=== PATIENT | female | born 1990 | race Caucasian/White ===

== ENCOUNTER 2016-07-06 19:11 | Emergency (ER) | payer OTHER ==
[2016-07-06 19:15] VITALS: BP 103/70; PULSE 90; RESP 18; TEMP 98.4
--- NOTE | 2016-07-06 19:41 | ED ---
ENT HPI - General Chief complaint: ENT Stated complaint: left ear ache Time Seen by Provider: 07/06/16 19:36 Source: patient, RN notes reviewed Mode of arrival: ambulatory Limitations: no limitations - History of Present Illness Initial comments: 26-year-old female presents to the emergency department with a chief complaint of left ear pain. Patient states that her ear has been hurting her for a while. Patient states that she's noticed some drainage and some wetness to the ear. Patient states she's had something like this before in the past. Patient states that she was concerned due to the continued pain so she thought that she should be evaluated. There is been no fever chills cough cold runny nose. There is been no nausea or vomiting. The patient denied any other symptoms at this time. Patient denies any recent fever, chills, shortness of breath, chest pain, back pain, abdominal pain, nausea vomiting, numbness or tingling, dysuria or hematuria, constipation or diarrhea, headaches or visual changes, or any other current symptoms. - Related Data Home Medications Medication Instructions Recorded Confirmed ALPRAZolam [Xanax] 2 mg PO BID PRN 11/21/14 07/06/16 Previous Rx's Medication Instructions Recorded Ofloxacin 0.3% Ophth Soln [Ocuflox 10 drops LEFT EAR BID 7 Days 07/06/16 Ophth Soln] Allergies Allergy/AdvReac Type Severity Reaction Status Date / Time No Known Allergies Allergy Verified 07/06/16 19:15 Review of Systems ROS Statement: Those systems with pertinent positive or pertinent negative responses have been documented in the HPI. ROS Other: All systems not noted in ROS Statement are negative. Past Medical History Past Medical History: No Reported History, GERD/Reflux History of Any Multi-Drug Resistant Organisms: None Reported Past Surgical History: Adenoidectomy, Tonsillectomy Past Anesthesia/Blood Transfusion Reactions: No Reported Reaction Past Psychological History: ADD/ADHD, Anxiety, Bipolar, Depression Smoking Status: Former smoker Past Alcohol Use History: None Reported Past Drug Use History: None Reported - Past Family History Mother Family Medical History: Cancer General Exam - General Exam Comments Initial Comments: General exam: Alert, active, comfortable in no apparent distress Head: Normocephalic Eyes: Normal reaction of pupils, equal size, normal range of extraocular motion Ears: Bilateral pink tympanic membranes with normal cone of light, and doesn't appear to have some erythema to the left external canal with pain with movement of the tragus and auricle. Nose: clear with pink turbinates Throat: no erythema or exudates with normal sized tonsils Neck: no masses, no nuchal rigidity Chest: no chest wall deformity Lungs: equal air entry with no crackles or wheeze CVS: S1 and S2 normal with no audible mumurs, regular rhythm Abdomen: no hepatosplenomegaly, normal bowel sounds, no guarding or rigidity Spine: no scoliosis or deformity Skin: no rashes Neurological: No focal deficits, tone is normal in all 4 extremities Limitations: no limitations Course Vital Signs 07/06/16 19:13 Temperature 98.4 F Pulse Rate 90 Respiratory 18 Rate Blood Pressure 103/70 O2 Sat by Pulse 98 Oximetry Medical Decision Making - Medical Decision Making 26-year-old female presents for what appears to be noted I this externa. This will start her on drops. We discussed follow-up with her DrMendoza coleman. We discussed outpatient family's questions. They state [place] area. Plan. They will be discharged home. Disposition Clinical Impression: Left otitis externa Disposition: HOME SELF-CARE Condition: Stable Instructions: Otitis Externa (ED) Additional Instructions: Please use medication as discussed. Please follow up with family doctor if symptoms have not improved over the next two days. Please return to the emergency room if your symptoms increase or worsen or for any other concerns. Prescriptions: Ofloxacin 0.3% Ophth Soln [Ocuflox Ophth Soln] 10 drops LEFT EAR BID 7 Days Referrals: Jovi Berry MD [Primary Care Provider] - 1-2 days Time of Disposition: 19:40
== END 2016-07-06 19:46 | disposition home or self-care (01) ==
LOC: EC 19:11
DX: H60.92 Unspecified otitis externa, left ear (principal); Z87.891 Personal history of nicotine dependence
CPT/HCPCS: 99282

== ENCOUNTER 2016-08-10 14:02 | Emergency (ER) | payer OTHER ==
[2016-08-10 14:17] VITALS: BP 121/75; PULSE 90; RESP 18; TEMP 97.7
--- NOTE | 2016-08-10 15:31 | ED ---
Skin/Abscess/FB HPI - General Chief complaint: Skin/Abscess/Foreign Body Stated complaint: Cyst near groin Time Seen by Provider: 08/10/16 14:23 Source: patient, RN notes reviewed Mode of arrival: ambulatory Limitations: no limitations - History of Present Illness Initial comments: 26-year-old female presents emergency Department chief complaint abscess to the left thigh. Patient is tender. Patient states that there is no drainage. Patient states that she's never had a feeling before. Patient denies any MRSA. Patient was concerned due to the symptoms so she thought that she should be evaluated. Patient denies any recent fever, chills, shortness of breath, chest pain, back pain, abdominal pain, nausea vomiting, numbness or tingling, dysuria or hematuria, constipation or diarrhea, headaches or visual changes, or any other current symptoms. - Related Data Home Medications Medication Instructions Recorded Confirmed Ibuprofen/Diphenhydramine HCl 4 cap PO HS PRN 08/10/16 08/10/16 [Advil Pm Liqui-Gels] Previous Rx's Medication Instructions Recorded Sulfamethox-Tmp 800-160Mg [Bactrim 2 each PO Q12HR #56 tab 08/10/16 DS 800-160 mg] Allergies Allergy/AdvReac Type Severity Reaction Status Date / Time No Known Allergies Allergy Verified 08/10/16 14:31 Review of Systems ROS Statement: Those systems with pertinent positive or pertinent negative responses have been documented in the HPI. ROS Other: All systems not noted in ROS Statement are negative. Past Medical History Past Medical History: No Reported History, GERD/Reflux History of Any Multi-Drug Resistant Organisms: None Reported Past Surgical History: Adenoidectomy, Tonsillectomy Past Anesthesia/Blood Transfusion Reactions: No Reported Reaction Past Psychological History: ADD/ADHD, Anxiety, Bipolar, Depression Smoking Status: Former smoker Past Alcohol Use History: None Reported Past Drug Use History: None Reported - Past Family History Mother Family Medical History: Cancer General Exam Limitations: no limitations General appearance: alert, in no apparent distress ENT exam: Present: normal exam, mucous membranes moist Neck exam: Present: normal inspection. Absent: tenderness, meningismus, lymphadenopathy Respiratory exam: Present: normal lung sounds bilaterally. Absent: respiratory distress, wheezes, rales, rhonchi, stridor Cardiovascular Exam: Present: regular rate, normal rhythm, normal heart sounds. Absent: systolic murmur, diastolic murmur, rubs, gallop, clicks External exam: Present: lesions (She appears to have an abscess to the left upper peritoneal area.). Absent: erythema, swelling, lacerations, ecchymosis Extremities exam: Present: normal inspection, full ROM, normal capillary refill. Absent: tenderness, pedal edema, joint swelling, calf tenderness Neurological exam: Present: alert, oriented X3 Psychiatric exam: Present: normal affect, normal mood Course Vital Signs 08/10/16 14:12 Temperature 97.7 F Pulse Rate 90 Respiratory 18 Rate Blood Pressure 121/75 O2 Sat by Pulse 99 Oximetry Procedures - Procedures Initial comment: Procedure: Incision and drainage The skin overlying the abscess was prepped with Betadine, and anesthetized with 1% lidocaine without epinephrine. A #11 scalpel was then used to incise the abscess. Some purulent material was then extracted from the lesion. Gauze dressing placed on top, The patient tolerated the procedure well. Medical Decision Making - Medical Decision Making 26-year-old female presents emergency Department chief complaint abscess. This time patient underwent drainage. We discussed care follow-up and return parameters. We discussed outpatient family's questions. He stated he understood and agreed. The plan. This and discharged. Disposition Clinical Impression: Abscess of left groin Disposition: HOME SELF-CARE Condition: Stable Instructions: Abscess (ED), Abscess Incision and Drainage (ED) Additional Instructions: Please use medication as discussed. Please follow up with family doctor if symptoms have not improved over the next two days. Please return to the emergency room if your symptoms increase or worsen or for any other concerns. Prescriptions: Sulfamethox-Tmp 800-160Mg [Bactrim DS 800-160 mg] 2 each PO Q12HR #56 tab Referrals: Jovi Berry MD [Primary Care Provider] - 1-2 days Time of Disposition: 15:31
== END 2016-08-10 15:41 | disposition home or self-care (01) ==
LOC: EC 14:02
DX: L02.214 Cutaneous abscess of groin (principal); Z87.891 Personal history of nicotine dependence
CPT/HCPCS: 10060; 99282

== ENCOUNTER 2016-10-24 09:33 | Emergency (ER) | payer OTHER ==
[2016-10-24 09:38] VITALS: RESP 18
[2016-10-24 10:35] LABS: Appearance,Urine Clear (Clear); Basophils # (A) 0.1 k/uL (0-0.2); Basophils % (A) 1 %; Bilirubin,Urine Negative (Negative); CH 31.4; CHCM 33.8; Eosinophils # (A) 0.3 k/uL (0-0.7); Eosinophils % (A) 3 %; Glucose,Urine (UA) Negative (Negative); HCT 42.4 % (34.0-46.0); HDW 2.54; HGB 13.8 gm/dL (11.4-16.0); Ketones,Urine Negative (Negative); Leukocyte Esterase,Urine Negative (Negative); Luc # (Auto) 0.17; Luc % (Auto) 2; Lymphocytes # (A) 3.4 k/uL (1.0-4.8); Lymphocytes % (A) 31 %; MCH 30.4 pg (25.0-35.0); MCHC 32.5 g/dL (31.0-37.0); MCV 93.6 fL (80.0-100.0); Mean Platelet Volume 7.9; Monocytes # (A) 0.5 k/uL (0-1.0); Monocytes % (A) 4 %; Neutrophils # (A) 6.5 k/uL (1.3-7.7); Neutrophils % (A) 60 %; Nitrite,Urine Negative (Negative); Protein,Urine Negative (Negative); RBC 4.53 m/uL (3.80-5.40); RDW 13.9 % (11.5-15.5); Specific Gravity,Urine 1.021 (1.001-1.035); UA Billing (MACRO vs. MICRO) CHEM; Urobilinogen,Urine <2.0 mg/dL (<2.0); WBC 10.9 k/uL (3.8-10.6); WBC (Perox) 11.14
[2016-10-24 10:43] LABS: INR 0.9 (<1.2); Partial Thromboplastin Time 23.6 sec (22.0-30.0); Prothrombin Time 9.5 sec (9.0-12.0)
[2016-10-24 10:44] LABS: ALT 39 U/L (9-52); AST 20 U/L (14-36); Alkaline Phosphatase 48 U/L (38-126); Anion Gap 6 mmol/L; Blood Urea Nitrogen 8 mg/dL (7-17); Calcium 8.6 mg/dL (8.4-10.2); Carbon Dioxide 23 mmol/L (22-30); Chloride 111 mmol/L (98-107); Glucose 89 mg/dL (74-99); Non-African American GFR(MDRD) >60 (>60 ml/min/1.73 sqM); Potassium 4.3 mmol/L (3.5-5.1); Sodium 140 mmol/L (137-145); Total Bilirubin 0.1 mg/dL (0.2-1.3); Total Protein 5.8 g/dL (6.3-8.2)
--- NOTE | 2016-10-24 11:33 | ED ---
Female Urogenital HPI - General Chief complaint: Urogenital Stated complaint: pelvic pain Time Seen by Provider: 10/24/16 09:47 Source: patient, RN notes reviewed, old records reviewed Mode of arrival: ambulatory Limitations: no limitations - History of Present Illness Initial comments: this is a 26-year-old female chief complaint of lower abdominal pain for the past day. Patient reports she woke up this morning felt a sharp shooting pain and it radiates towards her lower back.. When she stood up she felt a florentino of clear fluid leak out of her vagina. Patient reports that she has not had any previous vaginal discharge or bleeding. She reports that her last menstrual cycle was 2 months ago and there is a chance she may be . Patient states that she also noticed that whenever she leaned forward she was having some nipple pain, she reports that she felt like she wanted to repeat them off. She denies any abnormal discharge from her nipples. Patient states that she also has frequent right upper quadrant abdominal pain, denies any recent nausea or vomiting. She states that the pain has been going off-and-on for the past year. Patient states she's had a history of ovarian cysts. Patient denies any recent fever, chills, shortness of breath, chest pain, back pain, nausea vomiting, numbness or tingling, dysuria or hematuria, constipation or diarrhea, headaches or visual changes, or any other current symptoms - Related Data Home Medications Medication Instructions Recorded Confirmed ALPRAZolam [Xanax] 2 mg PO BID 10/24/16 10/24/16 diphenhydrAMINE HCL 25 mg PO HS PRN 10/24/16 10/24/16 [Diphenhydramine HCl] Previous Rx's Medication Instructions Recorded LORazepam [Ativan] 0.5 mg PO BID #10 tab 10/24/16 metroNIDAZOLE [Flagyl] 500 mg PO BID #14 tab 10/24/16 Allergies Allergy/AdvReac Type Severity Reaction Status Date / Time No Known Allergies Allergy Verified 10/24/16 09:49 Review of Systems ROS Statement: Those systems with pertinent positive or pertinent negative responses have been documented in the HPI. ROS Other: All systems not noted in ROS Statement are negative. Past Medical History Past Medical History: GERD/Reflux Additional Past Medical History / Comment(s): irregular periods History of Any Multi-Drug Resistant Organisms: None Reported Past Surgical History: Adenoidectomy, Tonsillectomy Past Anesthesia/Blood Transfusion Reactions: No Reported Reaction Past Psychological History: ADD/ADHD, Anxiety, Bipolar, Depression Smoking Status: Former smoker Past Alcohol Use History: None Reported Past Drug Use History: None Reported - Past Family History Mother Family Medical History: Cancer General Exam - General Exam Comments Initial Comments: this is a 26-year-old female. No acute distress. Limitations: no limitations General appearance: alert, in no apparent distress Head exam: Present: atraumatic, normocephalic, normal inspection Eye exam: Present: normal appearance, PERRL, EOMI. Absent: scleral icterus, conjunctival injection, periorbital swelling ENT exam: Present: normal exam, mucous membranes moist Neck exam: Present: normal inspection. Absent: tenderness, meningismus, lymphadenopathy Respiratory exam: Present: normal lung sounds bilaterally. Absent: respiratory distress, wheezes, rales, rhonchi, stridor Cardiovascular Exam: Present: regular rate, normal rhythm, normal heart sounds. Absent: systolic murmur, diastolic murmur, rubs, gallop, clicks GI/Abdominal exam: Present: soft, normal bowel sounds. Absent: distended, tenderness, guarding, rebound, rigid Extremities exam: Present: normal inspection, full ROM, normal capillary refill. Absent: tenderness, pedal edema, joint swelling, calf tenderness Back exam: Present: normal inspection Neurological exam: Present: alert, oriented X3, CN II-XII intact Psychiatric exam: Present: normal affect, normal mood Skin exam: Present: warm, dry, intact, normal color. Absent: rash Course Vital Signs 10/24/16 10/24/16 10/24/16 09:34 12:43 13:10 Temperature 98 F 97.3 F L Pulse Rate 81 65 Respiratory 18 18 Rate Blood Pressure 127/82 113/75 O2 Sat by Pulse 100 98 Oximetry Medical Decision Making - Medical Decision Making this is a 26-year-old female chief complaint of lower abdominal pain for the past day. Patient reports she woke up this morning felt a sharp shooting pain and it radiates towards her lower back.. When she stood up she felt a florentino of clear fluid leak out of her vagina. Patient reports that she has not had any previous vaginal discharge or bleeding. She reports that her last menstrual cycle was 2 months ago and there is a chance she may be . Patient states that she also noticed that whenever she leaned forward she was having some nipple pain, she reports that she felt like she wanted to repeat them off. She denies any abnormal discharge from her nipples. Patient also complains of severe anxiety during exam. Patient states that she is out of her anxiety medciation and cant refill them due to injusrance. Patient lab work was reviewed, negative for any abnormalities. Patient vaginal exam shows minor vaginal discharge, odor consistent with BV. Patient will be given Flagyl. Patient transvaginal US negative for any signficant abnormality. - Lab Data Result diagrams: 10/24/16 10:25 10/24/16 10:25 Lab Results 10/24/16 10/24/16 10/24/16 Range/Units 10:25 10:25 10:25 WBC 10.9 H (3.8-10.6) k/uL RBC 4.53 (3.80-5.40) m/uL Hgb 13.8 (11.4-16.0) gm/dL Hct 42.4 (34.0-46.0) % MCV 93.6 (80.0-100.0) fL MCH 30.4 (25.0-35.0) pg MCHC 32.5 (31.0-37.0) g/dL RDW 13.9 (11.5-15.5) % Plt Count 317 (150-450) k/uL Neutrophils % 60 % Lymphocytes % 31 % Monocytes % 4 % Eosinophils % 3 % Basophils % 1 % Neutrophils # 6.5 (1.3-7.7) k/uL Lymphocytes # 3.4 (1.0-4.8) k/uL Monocytes # 0.5 (0-1.0) k/uL Eosinophils # 0.3 (0-0.7) k/uL Basophils # 0.1 (0-0.2) k/uL PT (9.0-12.0) sec INR (<1.2) APTT (22.0-30.0) sec Sodium 140 (137-145) mmol/L Potassium 4.3 (3.5-5.1) mmol/L Chloride 111 H (98-107) mmol/L Carbon Dioxide 23 (22-30) mmol/L Anion Gap 6 mmol/L BUN 8 (7-17) mg/dL Creatinine 0.64 (0.52-1.04) mg/dL Est GFR (MDRD) Af Amer >60 (>60 ml/min/1.73 sqM) Est GFR (MDRD) Non-Af >60 (>60 ml/min/1.73 sqM) Glucose 89 (74-99) mg/dL Calcium 8.6 (8.4-10.2) mg/dL Total Bilirubin 0.1 L (0.2-1.3) mg/dL AST 20 (14-36) U/L ALT 39 (9-52) U/L Alkaline Phosphatase 48 (38-126) U/L Total Protein 5.8 L (6.3-8.2) g/dL Albumin 3.5 (3.5-5.0) g/dL Urine Color Urine Appearance (Clear) Urine pH (5.0-8.0) Ur Specific [place] (1.001-1.035) Urine Protein (Negative) Urine Glucose (UA) (Negative) Urine Ketones (Negative) Urine Blood (Negative) Urine Nitrite (Negative) Urine Bilirubin (Negative) Urine Urobilinogen (<2.0) mg/dL Ur Leukocyte Esterase (Negative) Urine HCG, Qual Not Detected (Not Detectd) C.trachomatis RNA (Not detected) Chlamydia/GC DNA Source N.gonorrhoeae RNA (Not detected) Trichomonas Ag (Rapid) (Negative) 10/24/16 10/24/16 10/24/16 Range/Units 10:25 10:25 13:00 WBC (3.8-10.6) k/uL RBC (3.80-5.40) m/uL Hgb (11.4-16.0) gm/dL Hct (34.0-46.0) % MCV (80.0-100.0) fL MCH (25.0-35.0) pg MCHC (31.0-37.0) g/dL RDW (11.5-15.5) % Plt Count (150-450) k/uL Neutrophils % % Lymphocytes % % Monocytes % % Eosinophils % % Basophils % % Neutrophils # (1.3-7.7) k/uL Lymphocytes # (1.0-4.8) k/uL Monocytes # (0-1.0) k/uL Eosinophils # (0-0.7) k/uL Basophils # (0-0.2) k/uL PT 9.5 (9.0-12.0) sec INR 0.9 (<1.2) APTT 23.6 (22.0-30.0) sec Sodium (137-145) mmol/L Potassium (3.5-5.1) mmol/L Chloride (98-107) mmol/L Carbon Dioxide (22-30) mmol/L Anion Gap mmol/L BUN (7-17) mg/dL Creatinine (0.52-1.04) mg/dL Est GFR (MDRD) Af Amer (>60 ml/min/1.73 sqM) Est GFR (MDRD) Non-Af (>60 ml/min/1.73 sqM) Glucose (74-99) mg/dL Calcium (8.4-10.2) mg/dL Total Bilirubin (0.2-1.3) mg/dL AST (14-36) U/L ALT (9-52) U/L Alkaline Phosphatase (38-126) U/L Total Protein (6.3-8.2) g/dL Albumin (3.5-5.0) g/dL Urine Color Yellow Urine Appearance Clear (Clear) Urine pH 5.0 (5.0-8.0) Ur Specific [place] 1.021 (1.001-1.035) Urine Protein Negative (Negative) Urine Glucose (UA) Negative (Negative) Urine Ketones Negative (Negative) Urine Blood Negative (Negative) Urine Nitrite Negative (Negative) Urine Bilirubin Negative (Negative) Urine Urobilinogen <2.0 (<2.0) mg/dL Ur Leukocyte Esterase Negative (Negative) Urine HCG, Qual (Not Detectd) C.trachomatis RNA Not detected (Not detected) Chlamydia/GC DNA Source Endocervix N.gonorrhoeae RNA Not detected (Not detected) Trichomonas Ag (Rapid) (Negative) 10/24/16 Range/Units 13:00 WBC (3.8-10.6) k/uL RBC (3.80-5.40) m/uL Hgb (11.4-16.0) gm/dL Hct (34.0-46.0) % MCV (80.0-100.0) fL MCH (25.0-35.0) pg MCHC (31.0-37.0) g/dL RDW (11.5-15.5) % Plt Count (150-450) k/uL Neutrophils % % Lymphocytes % % Monocytes % % Eosinophils % % Basophils % % Neutrophils # (1.3-7.7) k/uL Lymphocytes # (1.0-4.8) k/uL Monocytes # (0-1.0) k/uL Eosinophils # (0-0.7) k/uL Basophils # (0-0.2) k/uL PT (9.0-12.0) sec INR (<1.2) APTT (22.0-30.0) sec Sodium (137-145) mmol/L Potassium (3.5-5.1) mmol/L Chloride (98-107) mmol/L Carbon Dioxide (22-30) mmol/L Anion Gap mmol/L BUN (7-17) mg/dL Creatinine (0.52-1.04) mg/dL Est GFR (MDRD) Af Amer (>60 ml/min/1.73 sqM) Est GFR (MDRD) Non-Af (>60 ml/min/1.73 sqM) Glucose (74-99) mg/dL Calcium (8.4-10.2) mg/dL Total Bilirubin (0.2-1.3) mg/dL AST (14-36) U/L ALT (9-52) U/L Alkaline Phosphatase (38-126) U/L Total Protein (6.3-8.2) g/dL Albumin (3.5-5.0) g/dL Urine Color Urine Appearance (Clear) Urine pH (5.0-8.0) Ur Specific [place] (1.001-1.035) Urine Protein (Negative) Urine Glucose (UA) (Negative) Urine Ketones (Negative) Urine Blood (Negative) Urine Nitrite (Negative) Urine Bilirubin (Negative) Urine Urobilinogen (<2.0) mg/dL Ur Leukocyte Esterase (Negative) Urine HCG, Qual (Not Detectd) C.trachomatis RNA (Not detected) Chlamydia/GC DNA Source N.gonorrhoeae RNA (Not detected) Trichomonas Ag (Rapid) Negative (Negative) - Radiology Data Radiology results: report reviewed Endometrial stripe is thickened measuring 1.9 cm. Correlate with the use of menstrual cycle. Trace amount of fluid within the pelvis most likely physiologic. Disposition Clinical Impression: Bacterial vaginosis, Anxiety Disposition: HOME SELF-CARE Condition: Good Instructions: Bacterial Vaginosis (ED) Additional Instructions: patient advised to follow-up with her primary care provider. Take antibiotic as prescribed. Return to the emergency department if any alarming signs or symptoms occur. Prescriptions: LORazepam [Ativan] 0.5 mg PO BID #10 tab metroNIDAZOLE [Flagyl] 500 mg PO BID #14 tab Referrals: Jovi Berry MD [Primary Care Provider] - 1-2 days Time of Disposition: 12:59
--- NOTE | 2016-10-24 11:46 | US ---
EXAMINATION TYPE: US transvaginal DATE OF EXAM: 10/24/2016 COMPARISON: NONE CLINICAL HISTORY: Pain. Pelvic pain, worse on the right. Irregular menses TECHNIQUE: Transvaginal (TV) Date of LMP: 2 months ago EXAM MEASUREMENTS: Uterus: 8.6 x 4.9 x 5.1 cm Endometrial Stripe: 1.9 cm Right Ovary: 2.5 x 1.8 x 1.6 cm Left Ovary: 2.8 x 2.2 x 2.0 cm 1. Uterus: Anteverted Nabothian cyst 2. Endometrium: thickened 3. Right Ovary: limited evaluation due to location of ovary - posterior to uterus 4. Left Ovary: follicles noted Spectral, color and waveform doppler imaging shows good arterial and venous flow within the left ov lacho; there is no evidence for ovarian torsion. 5. Bilateral Adnexa: appears wnl 6. Posterior cul-de-sac: free fluid noted IMPRESSION: 1. Endometrial stripe is thickened measuring 1.9 cm. Correlate with phase of menstrual cycle. Trace a mount of fluid in the pelvis likely physiologic.
[2016-10-24] MEDS ORDERED: KETOROLAC 30 MG/ML 1 ML VIAL IVP STA (12:41)
[2016-10-24 12:45] VITALS: BP 113/75; PULSE 65
[2016-10-24 13:11] VITALS: TEMP 97.3
== END 2016-10-24 13:10 | disposition home or self-care (01) ==
LOC: EC 09:33
DX: N76.0 Acute vaginitis (principal); F41.9 Anxiety disorder, unspecified; F31.9 Bipolar disorder, unspecified; Z79.899 Other long term (current) drug therapy; Z87.891 Personal history of nicotine dependence
CPT/HCPCS: 99284; 96374; 36415; 80053; 87591; 87491; 85025; 85610; 85730; 81003; 81025; 87808; 87070; 87205; 93976; 76830; J1885

== ENCOUNTER 2017-03-10 08:32 | Emergency (ER) | payer OTHER ==
--- NOTE | 2017-03-10 08:58 | ED ---
URI HPI - General Chief Complaint: Upper Respiratory Infection Stated Complaint: FLU LIKE SYMPTOMS Time Seen by Provider: 03/10/17 08:44 Source: patient, RN notes reviewed Mode of arrival: ambulatory Limitations: no limitations - History of Present Illness Initial Comments: 26-year-old female presents emergency Department chief complaint of cough cold- like symptoms last 4 days. Patient states that she had a fever last few days and states that she primary has a runny nose, sore throat and a cough. States cough as well as a sore throat. She states cough is also dry but occasionally productive with phlegm. She denies any chest pain or shortness breath. She does admit to some body aches and chills. Patient has NO KNOWN DRUG ALLERGIES. She states every her work is sick with similar symptoms. Patient denies any nausea vomiting diarrhea constipation. - Related Data Home Medications Medication Instructions Recorded Confirmed ALPRAZolam [Xanax] 2 mg PO BID PRN 10/24/16 03/10/17 Previous Rx's Medication Instructions Recorded Amoxicillin/Potassium Clav 1 tab PO Q12HR #20 tab 03/10/17 [Augmentin 875-125 Tablet] methylPREDNISolone [Medrol Dose 4 mg PO DIRECTED #1 pack 03/10/17 Pack] Allergies Allergy/AdvReac Type Severity Reaction Status Date / Time No Known Allergies Allergy Verified 03/10/17 08:45 Review of Systems ROS Statement: Those systems with pertinent positive or pertinent negative responses have been documented in the HPI. ROS Other: All systems not noted in ROS Statement are negative. Past Medical History Past Medical History: GERD/Reflux Additional Past Medical History / Comment(s): irregular periods History of Any Multi-Drug Resistant Organisms: None Reported Past Surgical History: Adenoidectomy, Tonsillectomy Past Anesthesia/Blood Transfusion Reactions: No Reported Reaction Past Psychological History: ADD/ADHD, Anxiety, Bipolar, Depression Smoking Status: Current every day smoker Past Alcohol Use History: None Reported Past Drug Use History: None Reported - Past Family History Mother Family Medical History: Cancer General Exam Limitations: no limitations General appearance: alert, in no apparent distress Head exam: Present: atraumatic, normocephalic, normal inspection Eye exam: Present: normal appearance, PERRL, EOMI. Absent: scleral icterus, conjunctival injection, periorbital swelling ENT exam: Present: normal exam, normal oropharynx, mucous membranes moist, TM's normal bilaterally, normal external ear exam Neck exam: Present: normal inspection, full ROM. Absent: tenderness, meningismus, lymphadenopathy Respiratory exam: Present: normal lung sounds bilaterally. Absent: respiratory distress, wheezes, rales, rhonchi, stridor Cardiovascular Exam: Present: regular rate, normal rhythm, normal heart sounds. Absent: systolic murmur, diastolic murmur, rubs, gallop, clicks GI/Abdominal exam: Present: soft, normal bowel sounds. Absent: distended, tenderness, guarding, rebound, rigid Skin exam: Present: warm, dry, intact, normal color. Absent: rash Course Vital Signs 03/10/17 08:37 Temperature 97.4 F L Pulse Rate 91 Respiratory 18 Rate Blood Pressure 109/72 O2 Sat by Pulse 100 Oximetry Medical Decision Making - Medical Decision Making 26-year-old female presented for URI symptoms. Patient's chest x-ray, flu negative. Patient appears to have acute sinusitis the bronchitis. Will be discharged with medications. Return parameters were discussed. - Lab Data Lab Results 03/10/17 03/10/17 03/10/17 Range/Units 08:47 09:20 09:20 Urine Color Light Yellow Urine Appearance Cloudy H (Clear) Urine pH 5.5 (5.0-8.0) Ur Specific [place] 1.009 (1.001-1.035) Urine Protein Negative (Negative) Urine Glucose (UA) Negative (Negative) Urine Ketones Negative (Negative) Urine Blood Negative (Negative) Urine Nitrite Negative (Negative) Urine Bilirubin Negative (Negative) Urine Urobilinogen <2.0 (<2.0) mg/dL Ur Leukocyte Esterase Negative (Negative) Urine RBC 1 (0-5) /hpf Urine WBC 1 (0-5) /hpf Ur Squamous Epith Cells 1 (0-4) /hpf Hyaline Casts 1 (0-2) /lpf Urine Mucus Rare H (None) /hpf Urine HCG, Qual Not Detected (Not Detectd) Influenza Type A RNA Not Detected (Not Detectd) Influenza Type B (PCR) Not Detected (Not Detectd) Disposition Clinical Impression: Bronchitis, Sinusitis Disposition: HOME SELF-CARE Condition: Stable Instructions: Upper Respiratory Infection (ED) Additional Instructions: Please return to the Emergency Department if symptoms worsen or any other concerns. Prescriptions: Amoxicillin/Potassium Clav [Augmentin 875-125 Tablet] 1 tab PO Q12HR #20 tab methylPREDNISolone [Medrol Dose Pack] 4 mg PO DIRECTED #1 pack Referrals: Jovi Berry MD [Primary Care Provider] - 1-2 days Time of Disposition: 10:39
[2017-03-10 10:00] LABS: Appearance,Urine Cloudy (Clear); Bilirubin,Urine Negative (Negative); Blood,Urine Negative (Negative); Color,Urine Light Yellow; Glucose,Urine (UA) Negative (Negative); Hyaline Casts,Urine 1 /lpf (0-2); Ketones,Urine Negative (Negative); Leukocyte Esterase,Urine Negative (Negative); Mucus,Urine Rare /hpf; Nitrite,Urine Negative (Negative); PH, Urine 5.5 (5.0-8.0); Protein,Urine Negative (Negative); RBC,Urine 1 /hpf (0-5); Specific Gravity,Urine 1.009 (1.001-1.035); Squamous Epithelial Cell,Urine 1 /hpf (0-4); Urobilinogen,Urine <2.0 mg/dL (<2.0); WBC,Urine 1 /hpf (0-5)
--- NOTE | 2017-03-10 10:34 | XR ---
EXAMINATION TYPE: XR chest 2V DATE OF EXAM: 03/10/2017 COMPARISON: 07/28/2014 HISTORY: Chest pain TECHNIQUE: Frontal and lateral views of the chest are obtained. FINDINGS: There is no focal air space opacity. No evidence for pneumothorax. No pleural effusion. The cardiac silhouette size is within normal limits. The osseous structures are grossly intact. IMPRESSION: 1. No acute cardiopulmonary process.
[2017-03-10 10:47] VITALS: BP 113/77; PULSE 90; RESP 15; TEMP 97.6
== END 2017-03-10 10:46 | disposition home or self-care (01) ==
LOC: EC 08:32
DX: J40 Bronchitis, not specified as acute or chronic (principal); J32.9 Chronic sinusitis, unspecified; F17.200 Nicotine dependence, unspecified, uncomplicated; Z90.89 Acquired absence of other organs
CPT/HCPCS: 71046; 81001; 81025; 87502; 99283

== ENCOUNTER 2017-06-01 14:49 | Emergency (ER) | payer OTHER ==
[2017-06-01 14:57] VITALS: RESP 18; TEMP 98.5
--- NOTE | 2017-06-01 15:12 | ED ---
General Adult HPI - General Chief complaint: Back Pain/Injury Stated complaint: BACK PAIN Time Seen by Provider: 06/01/17 15:02 Source: patient, RN notes reviewed Mode of arrival: ambulatory Limitations: no limitations - History of Present Illness Initial comments: Patient 26-year-old female presented to the emergency room today with chief complaint of increased back pain. Patient does admit that she had a slip and fall 2 days ago. She states she was walking and felt a spasm in her back. She states that there was some grease on the ground and she slipped falling down. She states her no head injury or loss conscious. She states she's been experiencing some numbness tingling sensation going down to the right hand. She states she was having symptoms of this numbness tingling going to the right hand prior to this but is unsure if it was related. She states she was diagnosed with carpal tunnel past. Patient admits to pain in both the upper and lower back. Patient denies any lumbar radiculopathy. Denies any saddle or chills. Denies any bowel or bladder incontinence or retention. Patient does not that the pains were certain movements. She states she has not used anything for the symptoms. Patient denies any recent fever, chills, shortness of breath, chest pain, abdominal pain, nausea or vomiting, dysuria or hematuria , constipation or diarrhea, headaches or visual changes, or any other complaints. - Related Data Home Medications Medication Instructions Recorded Confirmed ALPRAZolam [Xanax] 2 mg PO BID PRN 10/24/16 03/10/17 Previous Rx's Medication Instructions Recorded Amoxicillin/Potassium Clav 1 tab PO Q12HR #20 tab 03/10/17 [Augmentin 875-125 Tablet] methylPREDNISolone [Medrol Dose 4 mg PO DIRECTED #1 pack 03/10/17 Pack] Cyclobenzaprine [Flexeril] 10 mg PO TID #20 tab 06/01/17 Allergies Allergy/AdvReac Type Severity Reaction Status Date / Time No Known Allergies Allergy Verified 06/01/17 14:57 Review of Systems ROS Statement: Those systems with pertinent positive or pertinent negative responses have been documented in the HPI. ROS Other: All systems not noted in ROS Statement are negative. Past Medical History Past Medical History: GERD/Reflux Additional Past Medical History / Comment(s): irregular periods History of Any Multi-Drug Resistant Organisms: None Reported Past Surgical History: Adenoidectomy, Tonsillectomy Past Anesthesia/Blood Transfusion Reactions: No Reported Reaction Past Psychological History: ADD/ADHD, Anxiety, Bipolar, Depression Smoking Status: Current every day smoker Past Alcohol Use History: None Reported Past Drug Use History: None Reported - Past Family History Mother Family Medical History: Cancer General Exam - General Exam Comments Initial Comments: General: The patient is awake and alert, in no distress, and does not appear acutely ill. Neck: The neck is supple, there is no tenderness or JVD. Cardiovascular: There is a regular rate and rhythm. No murmur, rub or gallop is appreciated. Respiratory: Lungs are clear to auscultation, respirations are non-labored, breath sounds are equal. No wheezes, stridor, rales, or rhonchi. Musculoskeletal: Patient has normal appearance of cervical, thoracic, lumbar spine. No step-off deformities. Patient does have tenderness C6-C7. Does have tenderness at T3-T5. Does have tenderness down at L4-L5. Patient does have some paravertebral tenderness both on the right and left sides of the cervical spine. Neurological: A&O x 3. CN II-XII intact, There are no obvious motor or sensory deficits. Coordination appears grossly intact. Speech is normal. Skin: Skin is warm and dry and no rashes or lesions are noted. Psychiatric: Normal mood and affect. Limitations: no limitations Course Vital Signs 06/01/17 14:54 Temperature 98.5 F Pulse Rate 95 Respiratory 18 Rate Blood Pressure 139/72 O2 Sat by Pulse 98 Oximetry Medical Decision Making - Medical Decision Making Patient's x-rays have been reviewed are unremarkable for any acute abnormalities. Results were discussed with the patient. Patient will be given muscle relaxer advised used Tylenol for her pain. She is advised follow-up family physician for further evaluation possible MRI for the symptoms. Advised return if any symptoms increase worsen or for any other concerns. She states her stay and is in agreement. Disposition Clinical Impression: Back pain Disposition: HOME SELF-CARE Condition: Good Instructions: Acute Low Back Pain (ED) Additional Instructions: Please use medication as discussed. Please follow-up with family doctor in the next 2 days of symptoms have not improved. Please return to emergency room if the symptoms increase or worsen or for any other concerns. Prescriptions: Cyclobenzaprine [Flexeril] 10 mg PO TID #20 tab Referrals: Jovi Berry MD [Primary Care Provider] - 1-2 days Time of Disposition: 16:00
--- NOTE | 2017-06-01 15:39 | XR ---
EXAMINATION TYPE: XR spine complete AP and Lat DATE OF EXAM: 06/01/2017 COMPARISON: NONE HISTORY: Pain TECHNIQUE: AP and lateral views of the cervical, thoracic and lumbar spine are submitted. FINDINGS: Cervical spine: Prevertebral soft tissue structures within normal limits. Alignment anatomic. Odontoi d intact. Vertebral body height and disc interspace maintained. Thoracic spine: There is a slight curvature the spine with mild hypertrophic changes anteriorly invol ving the mid thoracic spine. Disc space and vertebral body height maintained. Pedicles intact. Lumbar spine: Vertebral body height and disc interspace maintained pedicles intact. IMPRESSION: 1. Mild hypertrophic changes involving the mid thoracic spine. Consider MRI follow-up.
[2017-06-01] MEDS ORDERED: ACETAMINOPHEN TAB 500 MG TAB PO STA (16:02)
[2017-06-01] MEDS ORDERED: CYCLOBENZAPRINE 10MG STARTER 3 TAB BTL PO STA (16:02)
[2017-06-01 16:16] VITALS: BP 100/65; PULSE 64
== END 2017-06-01 16:16 | disposition home or self-care (01) ==
LOC: EC 14:49
DX: M54.5 Low back pain (principal); M54.6 Pain in thoracic spine; R20.0 Anesthesia of skin; F17.200 Nicotine dependence, unspecified, uncomplicated
CPT/HCPCS: 72082; 99283

== ENCOUNTER 2017-07-13 13:45 | Emergency (ER) | payer OTHER ==
--- NOTE | 2017-07-13 14:36 | ED ---
General Adult HPI - General Chief complaint: Chest Pain Stated complaint: Rib pain Time Seen by Provider: 07/13/17 14:09 Source: patient, RN notes reviewed Mode of arrival: ambulatory Limitations: no limitations - History of Present Illness Initial comments: Patient is a pleasant 27-year-old female presenting to the emergency department with rib pain. Patient states symptoms have been present for years but constant for the past 3 months. Discomfort is usually on the left ribs. It does start in the breast and extends towards the back following the ribs. Discomfort is positional. Occasionally patient has similar discomfort on the right side. Patient has a chronic cough that is unchanged. Patient is a smoker. Patient does have chronic sinus problems. Patient denies dyspnea. No nausea or diaphoresis. - Related Data Home Medications Medication Instructions Recorded Confirmed ALPRAZolam [Xanax] 2 mg PO BID PRN 10/24/16 07/13/17 Previous Rx's Medication Instructions Recorded Cyclobenzaprine [Flexeril] 10 mg PO TID PRN #12 tablet 07/13/17 Allergies Allergy/AdvReac Type Severity Reaction Status Date / Time No Known Allergies Allergy Verified 07/13/17 14:08 Review of Systems ROS Statement: Those systems with pertinent positive or pertinent negative responses have been documented in the HPI. ROS Other: All systems not noted in ROS Statement are negative. Constitutional: Denies: fever Eyes: Denies: eye pain ENT: Denies: ear pain Respiratory: Reports: cough. Denies: dyspnea Cardiovascular: Reports: chest pain. Denies: palpitations Endocrine: Denies: fatigue Gastrointestinal: Denies: abdominal pain, nausea Genitourinary: Denies: dysuria Musculoskeletal: Denies: back pain Skin: Denies: rash Neurological: Denies: weakness Past Medical History Past Medical History: GERD/Reflux Additional Past Medical History / Comment(s): irregular periods History of Any Multi-Drug Resistant Organisms: None Reported Past Surgical History: Adenoidectomy, Tonsillectomy Past Anesthesia/Blood Transfusion Reactions: No Reported Reaction Past Psychological History: ADD/ADHD, Anxiety, Bipolar, Depression Smoking Status: Current every day smoker Past Alcohol Use History: None Reported Past Drug Use History: None Reported - Past Family History Mother Family Medical History: Cancer General Exam Limitations: no limitations General appearance: alert, in no apparent distress Head exam: Present: atraumatic Eye exam: Present: normal appearance Neck exam: Present: normal inspection Respiratory exam: Present: normal lung sounds bilaterally, chest wall tenderness (Left lateral ribs. Also somewhat in the sternal region.) Cardiovascular Exam: Present: regular rate, normal rhythm Expanded Peripheral pulses: 2+: Radial (R), Radial (L), Dorsalis Pedis (R), Dorsalis Pedis (L) GI/Abdominal exam: Present: soft. Absent: distended, tenderness Extremities exam: Present: normal inspection. Absent: pedal edema, calf tenderness Back exam: Present: tenderness (Mild tenderness left lateral thoracic region of the ribs, approximately 8 and 9) Neurological exam: Present: alert Psychiatric exam: Present: normal affect, normal mood Skin exam: Present: normal color Course Vital Signs 07/13/17 07/13/17 13:51 15:29 Temperature 98.2 F Pulse Rate 111 H 80 Respiratory 20 18 Rate Blood Pressure 121/73 128/77 O2 Sat by Pulse 100 97 Oximetry EKG Findings - EKG Comments: EKG Findings:: Normal sinus rhythm 82. NH 160. QRS 82. QT 374. QTC 436. Normal axis. Normal QRS. No acute ST change. Medical Decision Making - Medical Decision Making Patient reevaluated and resting comfortably in bed. Patient updated on results and need for follow-up. - Lab Data Result diagrams: 07/13/17 14:45 07/13/17 14:45 Lab Results 07/13/17 07/13/17 07/13/17 Range/Units 14:45 14:45 14:45 WBC 11.5 H (3.8-10.6) k/uL RBC 4.51 (3.80-5.40) m/uL Hgb 13.6 (11.4-16.0) gm/dL Hct 40.2 (34.0-46.0) % MCV 89.3 (80.0-100.0) fL MCH 30.3 (25.0-35.0) pg MCHC 33.9 (31.0-37.0) g/dL RDW 13.5 (11.5-15.5) % Plt Count 306 (150-450) k/uL Neutrophils % 58 % Lymphocytes % 33 % Monocytes % 5 % Eosinophils % 4 % Basophils % 1 % Neutrophils # 6.7 (1.3-7.7) k/uL Lymphocytes # 3.8 (1.0-4.8) k/uL Monocytes # 0.5 (0-1.0) k/uL Eosinophils # 0.4 (0-0.7) k/uL Basophils # 0.1 (0-0.2) k/uL PT (9.0-12.0) sec INR (<1.2) APTT (22.0-30.0) sec D-Dimer (<0.60) mg/L FEU Sodium 141 (137-145) mmol/L Potassium 4.3 (3.5-5.1) mmol/L Chloride 107 (98-107) mmol/L Carbon Dioxide 24 (22-30) mmol/L Anion Gap 10 mmol/L BUN 7 (7-17) mg/dL Creatinine 0.52 (0.52-1.04) mg/dL Est GFR (CKD-EPI)AfAm >90 (>60 ml/min/1.73 sqM) Est GFR (CKD-EPI)NonAf >90 (>60 ml/min/1.73 sqM) Glucose 82 (74-99) mg/dL Calcium 9.3 (8.4-10.2) mg/dL Magnesium 1.9 (1.6-2.3) mg/dL Total Bilirubin 0.3 (0.2-1.3) mg/dL AST 23 (14-36) U/L ALT 32 (9-52) U/L Alkaline Phosphatase 61 (38-126) U/L Total Creatine Kinase 53 (30-135) U/L CK-MB (CK-2) 0.4 (0.0-2.4) ng/mL CK-MB (CK-2) Rel Index 0.8 Troponin I <0.012 (0.000-0.034) ng/mL Total Protein 6.5 (6.3-8.2) g/dL Albumin 3.9 (3.5-5.0) g/dL Amylase 38 (30-110) U/L Lipase 45 (23-300) U/L 07/13/17 Range/Units 14:45 WBC (3.8-10.6) k/uL RBC (3.80-5.40) m/uL Hgb (11.4-16.0) gm/dL Hct (34.0-46.0) % MCV (80.0-100.0) fL MCH (25.0-35.0) pg MCHC (31.0-37.0) g/dL RDW (11.5-15.5) % Plt Count (150-450) k/uL Neutrophils % % Lymphocytes % % Monocytes % % Eosinophils % % Basophils % % Neutrophils # (1.3-7.7) k/uL Lymphocytes # (1.0-4.8) k/uL Monocytes # (0-1.0) k/uL Eosinophils # (0-0.7) k/uL Basophils # (0-0.2) k/uL PT 9.6 (9.0-12.0) sec INR 1.0 (<1.2) APTT 24.6 (22.0-30.0) sec D-Dimer 0.21 (<0.60) mg/L FEU Sodium (137-145) mmol/L Potassium (3.5-5.1) mmol/L Chloride (98-107) mmol/L Carbon Dioxide (22-30) mmol/L Anion Gap mmol/L BUN (7-17) mg/dL Creatinine (0.52-1.04) mg/dL Est GFR (CKD-EPI)AfAm (>60 ml/min/1.73 sqM) Est GFR (CKD-EPI)NonAf (>60 ml/min/1.73 sqM) Glucose (74-99) mg/dL Calcium (8.4-10.2) mg/dL Magnesium (1.6-2.3) mg/dL Total Bilirubin (0.2-1.3) mg/dL AST (14-36) U/L ALT (9-52) U/L Alkaline Phosphatase (38-126) U/L Total Creatine Kinase (30-135) U/L CK-MB (CK-2) (0.0-2.4) ng/mL CK-MB (CK-2) Rel Index Troponin I (0.000-0.034) ng/mL Total Protein (6.3-8.2) g/dL Albumin (3.5-5.0) g/dL Amylase (30-110) U/L Lipase (23-300) U/L - Radiology Data Radiology results: image reviewed (Chest x-ray shows no acute process) Disposition Clinical Impression: Chest wall syndrome Disposition: HOME SELF-CARE Condition: Stable Instructions: Chest Pain (ED) Additional Instructions: Please do follow-up with your primary care physician in the next day or 2 for recheck and further evaluation. Return for difficulty breathing, fevers, worsening or change in symptoms or other concerns. Prescriptions: Cyclobenzaprine [Flexeril] 10 mg PO TID PRN #12 tablet PRN Reason: Pain Is patient prescribed a controlled substance at d/c from ED?: No Referrals: Jovi Berry MD [Primary Care Provider] - 1-2 days Time of Disposition: 16:05
[2017-07-13 14:59] LABS: Basophils # (A) 0.1 k/uL (0-0.2); Basophils % (A) 1 %; Eosinophils # (A) 0.4 k/uL (0-0.7); Eosinophils % (A) 4 %; HCT 40.2 % (34.0-46.0); HGB 13.6 gm/dL (11.4-16.0); Lymphocytes # (A) 3.8 k/uL (1.0-4.8); Lymphocytes % (A) 33 %; MCH 30.3 pg (25.0-35.0); MCHC 33.9 g/dL (31.0-37.0); MCV 89.3 fL (80.0-100.0); Mean Platelet Volume 7.7; Monocytes # (A) 0.5 k/uL (0-1.0); Monocytes % (A) 5 %; Neutrophils # (A) 6.7 k/uL (1.3-7.7); Neutrophils % (A) 58 %; Platelet Count 306 k/uL (150-450); RBC 4.51 m/uL (3.80-5.40); RDW 13.5 % (11.5-15.5); WBC 11.5 k/uL (3.8-10.6)
--- NOTE | 2017-07-13 14:59 | XR ---
EXAMINATION TYPE: XR chest 2V DATE OF EXAM: 07/13/2017 COMPARISON: Chest x-ray March 10, 2017. HISTORY: Chest and right-sided flank pain. TECHNIQUE: Frontal and lateral views of the chest are obtained. FINDINGS: There is no focal air space opacity, pleural effusion, or pneumothorax seen. The cardiac silhouette size is within normal limits. The osseous structures are intact. IMPRESSION: No acute process. No significant change from prior.
[2017-07-13 15:12] LABS: ALT 32 U/L (9-52); AST 23 U/L (14-36); Albumin 3.9 g/dL (3.5-5.0); Alkaline Phosphatase 61 U/L (38-126); Amylase 38 U/L (30-110); Anion Gap 10 mmol/L; Blood Urea Nitrogen 7 mg/dL (7-17); Calcium 9.3 mg/dL (8.4-10.2); Carbon Dioxide 24 mmol/L (22-30); Chloride 107 mmol/L (98-107); D-Dimer 0.21 mg/L FEU (<0.60); Glucose 82 mg/dL (74-99); Lipase 45 U/L (23-300); Magnesium 1.9 mg/dL (1.6-2.3); Partial Thromboplastin Time 24.6 sec (22.0-30.0); Potassium 4.3 mmol/L (3.5-5.1); Prothrombin Time 9.6 sec (9.0-12.0); Sodium 141 mmol/L (137-145); Total Bilirubin 0.3 mg/dL (0.2-1.3); Total Protein 6.5 g/dL (6.3-8.2)
[2017-07-13 15:21] LABS: Creatine Kinase 53 U/L (30-135)
[2017-07-13] MEDS ORDERED: KETOROLAC 30 MG/ML 1 ML VIAL IVP STA (15:28)
[2017-07-13 15:29] VITALS: RESP 18
[2017-07-13 15:33] LABS: Creatine Kinase MB 0.4 ng/mL (0.0-2.4); Troponin I <0.012 ng/mL (0.000-0.034)
[2017-07-13] MEDS ORDERED: ORPHENADRINE 30 MG/ML 2 ML VIAL IVP STA (16:05)
[2017-07-13 16:28] VITALS: BP 121/81; PULSE 78; TEMP 98.4
== END 2017-07-13 16:36 | disposition home or self-care (01) ==
LOC: EC 13:45
DX: R07.1 Chest pain on breathing (principal); F41.9 Anxiety disorder, unspecified; F31.9 Bipolar disorder, unspecified; F90.9 Attention-deficit hyperactivity disorder, unspecified type; F17.200 Nicotine dependence, unspecified, uncomplicated
CPT/HCPCS: 36415; 93005; 85379; 80053; 82150; 82550; 82553; 83690; 83735; 84484; 85025; 85610; 85730; 71046; 99284; 96374; 96375; J2360; J1885

== ENCOUNTER 2017-11-28 20:39 | Emergency (ER) | payer OTHER ==
[2017-11-28 20:46] VITALS: TEMP 98.3
[2017-11-28] MEDS ORDERED: ALBUTEROL NEBULIZED 2.5 MG/3 ML INHALATION STA (22:02)
--- NOTE | 2017-11-28 22:05 | ED ---
URI HPI - General Chief Complaint: Upper Respiratory Infection Stated Complaint: panic attack Time Seen by Provider: 11/28/17 21:07 Source: patient, family Mode of arrival: ambulatory Limitations: no limitations - History of Present Illness Initial Comments: 's patient is a 27-year-old woman who presents with complaint that she is having congestion, cough, and feeling like she is having a hard time breathing. Symptoms have been getting worse over the past few days. She states things started with cold. She has not noted fever or chills. She is not having productive cough. No pains. MD Complaint: cough, nasal congestion -: days(s) Severity: moderate Consistency: constant Improves With: nothing Worsens With: nothing Treatments Prior to Arrival: none - Related Data Previous Rx's Medication Instructions Recorded Albuterol Inhaler [Ventolin Hfa 1 - 2 puff INHALATION Q6HR PRN #1 11/28/17 Inhaler] inhaler FLUoxetine HCL [PROzac] 10 mg PO DAILY #10 capsule 11/28/17 predniSONE 60 mg PO DAILY #30 tab 11/28/17 Allergies Allergy/AdvReac Type Severity Reaction Status Date / Time No Known Allergies Allergy Verified 11/28/17 20:51 Review of Systems ROS Statement: Those systems with pertinent positive or pertinent negative responses have been documented in the HPI. ROS Other: All systems not noted in ROS Statement are negative. Constitutional: Denies: fever, chills ENT: Reports: congestion. Denies: throat pain Respiratory: Reports: cough, dyspnea. Denies: hemoptysis Cardiovascular: Denies: chest pain, edema, syncope Gastrointestinal: Denies: abdominal pain, nausea, vomiting Genitourinary: Denies: dysuria, hematuria Musculoskeletal: Denies: back pain Skin: Denies: rash Neurological: Denies: headache, weakness, numbness Past Medical History Past Medical History: Asthma, GERD/Reflux Additional Past Medical History / Comment(s): irregular periods History of Any Multi-Drug Resistant Organisms: None Reported Past Surgical History: Adenoidectomy, Tonsillectomy Past Anesthesia/Blood Transfusion Reactions: No Reported Reaction Past Psychological History: ADD/ADHD, Anxiety, Bipolar, Depression Smoking Status: Former smoker Past Alcohol Use History: None Reported Past Drug Use History: None Reported - Past Family History Mother Family Medical History: Cancer General Exam Limitations: no limitations General appearance: alert, in no apparent distress, obese Head exam: Present: atraumatic, normocephalic Eye exam: Present: normal appearance. Absent: scleral icterus, conjunctival injection ENT exam: Present: normal oropharynx Respiratory exam: Present: wheezes. Absent: respiratory distress, rales, rhonchi, stridor Cardiovascular Exam: Present: normal rhythm, tachycardia, normal heart sounds. Absent: systolic murmur, diastolic murmur, rubs, gallop GI/Abdominal exam: Present: soft. Absent: distended, tenderness, guarding, rebound, mass Extremities exam: Present: normal inspection, normal capillary refill. Absent: pedal edema, calf tenderness Skin exam: Present: warm, dry, intact, normal color. Absent: rash Course Vital Signs 11/28/17 11/28/17 11/28/17 20:44 20:50 22:09 Temperature 98.3 F Pulse Rate 120 H 82 Respiratory 20 26 H 18 Rate Blood Pressure 145/85 O2 Sat by Pulse 97 Oximetry 11/28/17 22:16 Temperature Pulse Rate 92 Respiratory 18 Rate Blood Pressure O2 Sat by Pulse Oximetry Disposition Clinical Impression: Bronchitis, Anxiety Disposition: HOME SELF-CARE Condition: Good Instructions: Acute Bronchitis (ED), Anxiety (ED) Prescriptions: Albuterol Inhaler [Ventolin Hfa Inhaler] 1 - 2 puff INHALATION Q6HR PRN #1 inhaler PRN Reason: Wheezing FLUoxetine HCL [PROzac] 10 mg PO DAILY #10 capsule predniSONE 60 mg PO DAILY #30 tab Is patient prescribed a controlled substance at d/c from ED?: No Referrals: Jovi Berry MD [Primary Care Provider] - 1-2 days
--- NOTE | 2017-11-28 22:28 | XR ---
EXAMINATION TYPE: XR chest 2V DATE OF EXAM: 11/28/2017 COMPARISON: NONE HISTORY: Cough TECHNIQUE: Frontal and lateral views of the chest are obtained. FINDINGS: Heart and mediastinum are normal. Lungs are clear. Diaphragm bony thorax and soft tissues appear normal. IMPRESSION: Normal chest
[2017-11-28] MEDS ORDERED: predniSONE 20 MG TAB PO STA (23:02)
[2017-11-28 23:11] VITALS: BP 119/67; PULSE 106; RESP 22
[2017-11-28] MEDS ORDERED: FLUoxetine HCL 10 MG CAP PO STA (23:20)
== END 2017-11-28 23:43 | disposition home or self-care (01) ==
LOC: EC 20:39
DX: J45.909 Unspecified asthma, uncomplicated (principal); R00.0 Tachycardia, unspecified; F41.9 Anxiety disorder, unspecified; Z87.891 Personal history of nicotine dependence; Z90.89 Acquired absence of other organs
CPT/HCPCS: 99283; 94640; 71046; J7512

== ENCOUNTER 2018-04-20 02:37 | Emergency (ER) | payer OTHER ==
[2018-04-20 03:00] VITALS: BP 115/81; PULSE 100; RESP 20; TEMP 98
[2018-04-20] MEDS ORDERED: PROPARACAINE 0.5% OPHTH DROPS 15 ML BTL RIGHT EYE STA (03:02)
[2018-04-20] MEDS ORDERED: TOBRAMYCIN 0.3% OPHTH OINT 3.5 GM TUBE RIGHT EYE STA (03:38)
[2018-04-20] MEDS ORDERED: DIPH,PERTUS(ACELL)TETVAC-LF 0.5 ML VIAL IM ONE (03:38)
--- NOTE | 2018-04-20 03:39 | ED ---
Eye Problem HPI - General Chief complaint: Eye Problems Stated complaint: Eye Problems, poss foreign body Time Seen by Provider: 04/20/18 03:02 Source: patient Mode of arrival: ambulatory Limitations: no limitations - History of Present Illness Initial comments: 27-year-old female patient presents to the emergency department today for evaluation of right eye pain and discomfort. Patient states on 6 PM she felt like she got something into the eye. Patient states that she did attempt to flush it with water and Visine however did seem to help. Patient states she went to sleep when she woke up she could barely open the eye due to the pain. Patient denies any drainage. Denies any fevers or chills. States that she feels her vision is blurred. She is unsure what may have gotten into her eye. States she does have a dog and cat at home. She denies any headache with this. Patient denies any recent rash, shortness breath, chest pain, abdominal pain, nausea, vomiting, diarrhea, constipation, back pain, numbness, tingling, dizziness, weakness, hematuria, dysuria, urinary urgency, urinary frequency, headache, visual changes, or any other complaints. - Related Data Previous Rx's Medication Instructions Recorded Albuterol Inhaler [Ventolin Hfa 1 - 2 puff INHALATION Q6HR PRN #1 11/28/17 Inhaler] inhaler FLUoxetine HCL [PROzac] 10 mg PO DAILY #10 capsule 11/28/17 predniSONE 60 mg PO DAILY #30 tab 11/28/17 Allergies Allergy/AdvReac Type Severity Reaction Status Date / Time No Known Allergies Allergy Verified 04/20/18 02:59 Review of Systems ROS Statement: Those systems with pertinent positive or pertinent negative responses have been documented in the HPI. ROS Other: All systems not noted in ROS Statement are negative. Past Medical History Past Medical History: Asthma, GERD/Reflux Additional Past Medical History / Comment(s): irregular periods History of Any Multi-Drug Resistant Organisms: None Reported Past Surgical History: Adenoidectomy, Tonsillectomy Past Anesthesia/Blood Transfusion Reactions: No Reported Reaction Past Psychological History: ADD/ADHD, Anxiety, Bipolar, Depression Smoking Status: Former smoker Past Alcohol Use History: None Reported Past Drug Use History: None Reported - Past Family History Mother Family Medical History: Cancer General Exam Limitations: no limitations General appearance: alert, in no apparent distress, other (Physical well- developed, well-nourished adult female patient in no acute distress. Vital signs upon presentation are temperature 98.0F, pulse 100, respirations 20, blood pressure 115/81, pulse ox 99% on room air.) Eye exam: Present: PERRL, EOMI, other (Mild right sided conjunctival injection. Did perform fluorescein stain with Wood's lamp examination, there is evidence for a small corneal abrasion to the right eye. No evidence for foreign body with lid eversion. Extraocular movements are intact with no pain or limitation. No hyphema.). Absent: normal appearance, scleral icterus, conjunctival injection, periorbital swelling ENT exam: Present: normal exam, normal oropharynx, mucous membranes moist Respiratory exam: Present: normal lung sounds bilaterally. Absent: respiratory distress, wheezes, rales, rhonchi, stridor Cardiovascular Exam: Present: regular rate, normal rhythm, normal heart sounds. Absent: systolic murmur, diastolic murmur, rubs, gallop, clicks Neurological exam: Present: alert, oriented X3, CN II-XII intact Psychiatric exam: Present: normal affect, normal mood Skin exam: Present: warm, dry, intact, normal color. Absent: rash Course Vital Signs 04/20/18 02:57 Temperature 98.0 F Pulse Rate 100 Respiratory 20 Rate Blood Pressure 115/81 O2 Sat by Pulse 99 Oximetry Medical Decision Making - Medical Decision Making 27-year-old female patient presented to the emergency department today for evaluation of right eye discomfort and foreign body sensation. Physical examination did reveal mild right-sided conjunctival injection. Did perform fluorescein stain with Wood's lamp examination, there was evidence for a small corneal abrasion on the right side. There is no evidence for foreign body with lid eversion. Patient did have immediate relief with instillation of proparacaine drops. We will update tetanus. She'll be discharged home with tobramycin ointment. She is instructed to follow-up with greenhouse worker if symptoms persist beyond one to 2 days. Return parameters were discussed in detail. She verbalizes understanding and agrees with this plan. Disposition Clinical Impression: Right corneal abrasion Disposition: HOME SELF-CARE Condition: Good Instructions (If sedation given, give patient instructions): Tobramycin (Into the eye), Corneal Abrasion (ED) Additional Instructions: Do 1cm ribbon to the right lower lid 4 times daily while awake. Take ibuprofen for pain control. Follow-up with greenhouse worker if her symptoms aren't improved over the next 1-2 days. Return to the emergency department immediately for any new, worsening, or concerning symptoms. Is patient prescribed a controlled substance at d/c from ED?: No Referrals: Jovi Berry MD [Primary Care Provider] - 1-2 days Thierno Clifton MD [STAFF PHYSICIAN] - 1-2 days Time of Disposition: 03:39
== END 2018-04-20 04:41 | disposition home or self-care (01) ==
LOC: EC 02:37
DX: S05.01XA Injury of conjunctiva and corneal abrasion without foreign body, right eye, initial encounter (principal); Z23 Encounter for immunization; Z87.891 Personal history of nicotine dependence; X58.XXXA Exposure to other specified factors, initial encounter
CPT/HCPCS: 90471; 90715; 99283

== ENCOUNTER 2018-04-20 18:11 | Emergency (ER) | payer OTHER ==
[2018-04-20 18:18] VITALS: TEMP 98.1
[2018-04-20] MEDS ORDERED: PROPARACAINE 0.5% OPHTH DROPS 15 ML BTL LEFT EYE STA (18:26)
--- NOTE | 2018-04-20 19:30 | ED ---
Eye Problem HPI - General Chief complaint: Eye Problems Stated complaint: Eye problem Time Seen by Provider: 04/20/18 18:20 Source: patient Mode of arrival: ambulatory Limitations: no limitations - History of Present Illness Initial comments: Well-appearing 27-year-old female presenting today for chief complaint of right eye pain. Patient states she was evaluated this morning at 3 AM. She states she was diagnosed with a corneal abrasion. Patient denies any contact lens use. Patient states she has been taking her erythromycin ointment as directed every 4 hours. Patient states that the pain persists. Patient states she has not follow-up ophthalmology as recommended. Patient states that yesterday evening while sitting in a chair she noticed something itchy in her eye she states she rubbed her right eye. She states there is no syncope pain however irritation. She states she went to bed and woke up at the middle night at 3 AM noticing pain in the right eye. Patient denies wood working, working with any metals. Patient denies noticing any specific foreign body. Patient denies any chemical use. Patient denies any headache nausea vomiting. Patient denies any tenderness to palpation of the temples. Patient denies any vision loss. Patient does admit to photophobia. Patient states the pain is persistent. She states she did have alleviation of symptoms with administration of a drop given in the ER last night. Remaining review of systems negative, patient denies any recent fever, chills, shortness of breath, chest pain, back pain, abdominal pain , nausea or vomiting, numbness or tingling, dysuria or hematuria, constipation or diarrhea, headaches or visual changes, or any other complaints. - Related Data Previous Rx's Medication Instructions Recorded Albuterol Inhaler [Ventolin Hfa 1 - 2 puff INHALATION Q6HR PRN #1 11/28/17 Inhaler] inhaler FLUoxetine HCL [PROzac] 10 mg PO DAILY #10 capsule 11/28/17 predniSONE 60 mg PO DAILY #30 tab 11/28/17 Allergies Allergy/AdvReac Type Severity Reaction Status Date / Time No Known Allergies Allergy Verified 04/20/18 18:16 Review of Systems ROS Statement: Those systems with pertinent positive or pertinent negative responses have been documented in the HPI. ROS Other: All systems not noted in ROS Statement are negative. Past Medical History Past Medical History: Asthma, GERD/Reflux Additional Past Medical History / Comment(s): irregular periods History of Any Multi-Drug Resistant Organisms: None Reported Past Surgical History: Adenoidectomy, Tonsillectomy Past Anesthesia/Blood Transfusion Reactions: No Reported Reaction Past Psychological History: ADD/ADHD, Anxiety, Bipolar, Depression Smoking Status: Current every day smoker Past Alcohol Use History: None Reported Past Drug Use History: None Reported - Past Family History Mother Family Medical History: Cancer General Exam - General Exam Comments Initial Comments: General: The patient is awake and alert, in no distress, and does not appear acutely ill. Eye: Pupils are equal, round and reactive to light, extra-ocular movements are intact. Photophobia, no APD. No cell and flare. Upon fluorescein examination there is corneal abrasion at the 3 o'clock position in a crescent shape consistent with possible fingernail. No evidence of foreign body. No evidence of yellow discoloration on slit lamp, no fritz coloring or evidence of ulceration. VF intact to confrontation. No nystagmus. There is normal conjunctiva bilaterally. No signs of icterus. Ears, nose, mouth and throat: There are moist mucous membranes and no oral lesions. Neck: The neck is supple, there is no tenderness or JVD. Cardiovascular: There is a regular rate and rhythm. No murmur, rub or gallop is appreciated. Respiratory: Lungs are clear to auscultation, respirations are non-labored, breath sounds are equal. No wheezes, stridor, rales, or rhonchi. Musculoskeletal: Normal ROM, no tenderness. Strength 5/5. Sensation intact. Pulses equal bilaterally 2+. Neurological: A&O x 3. CN II-XII intact, There are no obvious motor or sensory deficits. Coordination appears grossly intact. Speech is normal. Skin: Skin is warm and dry and no rashes or lesions are noted. Psychiatric: Cooperative, appropriate mood & affect, normal judgment. Limitations: no limitations Course Vital Signs 04/20/18 04/20/18 18:16 19:50 Temperature 98.1 F Pulse Rate 94 85 Respiratory 18 16 Rate Blood Pressure 111/80 120/78 O2 Sat by Pulse 100 98 Oximetry Medical Decision Making - Medical Decision Making Pt recently diagnosied with corneal abrasion presenting for persistent pain. Proparacaine administered, this alleviate symptoms supporting corneal abrasion. No evidence of ulceration. Patient is compliant with antibiotic. Patient presents for pain management. Negative Porsche sign. No contact lens use. This time I do feel patient is stable for discharge she was given starter pack for Ultram, given instruction to f/u with ophthalmology. I discussed the risk of not following up as well as the risk of not using antibiotic as directed. Patient verbalized understanding of the importance of these to instructions. I did discuss the case attending provider Dr. Suazo who agrees with impression and plan. Patient discharged appearing well. Disposition Clinical Impression: Corneal abrasion Disposition: HOME SELF-CARE Condition: Good Instructions (If sedation given, give patient instructions): Corneal Abrasion ( ED) Additional Instructions: Please use medication as discussed. Please follow-up with ophthalmology in 24 hours. Please continue to use drop as directed. Please return to emergency room if the symptoms increase or worsen or for any other concerns. Is patient prescribed a controlled substance at d/c from ED?: No Referrals: Jovi Berry MD [Primary Care Provider] - 1-2 days Thierno Clifton MD [STAFF PHYSICIAN] - 1-2 days Time of Disposition: 19:38
[2018-04-20] MEDS ORDERED: traMADol 50 MG STARTER PACK 3 TAB BTL PO STA (19:37)
[2018-04-20 19:52] VITALS: BP 120/78; PULSE 85; RESP 16
== END 2018-04-20 19:50 | disposition home or self-care (01) ==
LOC: EC 18:11
DX: S05.01XD Injury of conjunctiva and corneal abrasion without foreign body, right eye, subsequent encounter (principal); F17.200 Nicotine dependence, unspecified, uncomplicated; X58.XXXD Exposure to other specified factors, subsequent encounter
CPT/HCPCS: 99282

== ENCOUNTER 2018-09-19 15:02 | Emergency (ER) | payer OTHER ==
[2018-09-19 15:40] VITALS: BP 109/75; PULSE 93; RESP 18; TEMP 98.2
[2018-09-19] MEDS ORDERED: AMOXICILLIN 500MG STARTER PACK 3 CAP BTL PO STA (17:15)
--- NOTE | 2018-09-19 17:15 | ED ---
ENT HPI - General Chief complaint: ENT Stated complaint: bilat ear pain Time Seen by Provider: 09/19/18 16:33 Source: patient Mode of arrival: ambulatory Limitations: no limitations - History of Present Illness Initial comments: 28-year-old female presenting today for chief complaint fire lateral ear pain. Patient states has been ongoing for the past 5 days. Patient states she did some a few days prior to onset of symptoms. Patient states is tender to palpation of the external ear. Patient has a fever chills night sweats or flu like symptoms. Patient states at times she has felt like they were draining. Patient denies history of diabetes. Patient denies hearing loss headache neck stiffness. Patient denies any nausea vomiting or dizziness. Remaining review of systems negative upon arrival patient appears well no signs of acute distress. - Related Data Home Medications Medication Instructions Recorded Confirmed ALPRAZolam [Xanax] 2 mg PO BID 09/19/18 09/19/18 Acetaminophen/Pamabrom [Midol 1 tab PO QID PRN 09/19/18 09/19/18 Caplet] Sertraline [Zoloft] 50 mg PO DAILY 09/19/18 09/19/18 Previous Rx's Medication Instructions Recorded Amoxicillin 500 mg PO Q8H 7 Days #21 capsule 09/19/18 Ofloxacin 0.3% Otic Soln [Floxin 5 drops BOTH EARS BID 7 Days #1 09/19/18 0.3% Otic Soln] bottle Allergies Allergy/AdvReac Type Severity Reaction Status Date / Time No Known Allergies Allergy Verified 09/19/18 16:58 Review of Systems ROS Statement: Those systems with pertinent positive or pertinent negative responses have been documented in the HPI. ROS Other: All systems not noted in ROS Statement are negative. Past Medical History Past Medical History: Asthma, GERD/Reflux Additional Past Medical History / Comment(s): irregular periods History of Any Multi-Drug Resistant Organisms: None Reported Past Surgical History: Adenoidectomy, Tonsillectomy Past Anesthesia/Blood Transfusion Reactions: No Reported Reaction Past Psychological History: ADD/ADHD, Anxiety, Bipolar, Depression Smoking Status: Former smoker Past Alcohol Use History: Occasional Past Drug Use History: Marijuana - Past Family History Mother Family Medical History: Cancer General Exam - General Exam Comments Initial Comments: General: The patient is awake and alert, in no distress, and does not appear acutely ill. Eye: Pupils are equal, round and reactive to light, extra-ocular movements are intact. No nystagmus. There is normal conjunctiva bilaterally. No signs of icterus. No photophobia Ears, nose, mouth and throat: There are moist mucous membranes and no oral lesions. Swelling of the external auditory canal bilaterally on physical examination. Mild erythema. No noted erythema of the tympanic membrane however these were limited secondary to cerumen. Patient had pain to palpation of the penile and pulling of the auricle. Bilaterally. No tenderness to palpation of the mastoid. Neck: The neck is supple, there is no tenderness or JVD. No nuchal irritation. Cardiovascular: There is a regular rate and rhythm. No murmur, rub or gallop is appreciated. Respiratory: Lungs are clear to auscultation, respirations are non-labored, breath sounds are equal. No wheezes, stridor, rales, or rhonchi. Gastrointestinal: [Soft, non-distended, non-tender abdomen without masses or organomegaly noted. There is no rebound or guarding present. No CVA tenderness. Bowel sounds are unremarkable.] Musculoskeletal: Normal ROM, no tenderness. Strength 5/5. Sensation intact. Pulses equal bilaterally 2+. Neurological: A&O x 3. CN II-XII intact, There are no obvious motor or sensory deficits. Coordination appears grossly intact. Speech is normal. Skin: Skin is warm and dry and no rashes or lesions are noted. Psychiatric: Cooperative, appropriate mood & affect, normal judgment. Limitations: no limitations Course Vital Signs 09/19/18 15:38 Temperature 98.2 F Pulse Rate 93 Respiratory 18 Rate Blood Pressure 109/75 O2 Sat by Pulse 96 Oximetry Medical Decision Making - Medical Decision Making 28-year-old female presenting for bilateral ear pain for 5 days. Findings are consistent with otitis externa. Cannot completely visualize the tympanic membrane cannot exclude concurring inner ear infection. Patient will be started on amoxicillin as well as ofloxacin drops. Patient first provided initial occasions the emergency department. Return parameters as well as importance of follow-up was discussed at length patient verbalized understanding. Patient was discharged appearing well Disposition Clinical Impression: Otitis externa of both ears Disposition: HOME SELF-CARE Condition: Good Instructions (If sedation given, give patient instructions): Otitis Externa (DC) Additional Instructions: Please use medication as discussed. Please follow-up with family doctor in the next 2 days. Please return to emergency room if the symptoms increase or worsen or for any other concerns. Prescriptions: Amoxicillin 500 mg PO Q8H 7 Days #21 capsule Ofloxacin 0.3% Otic Soln [Floxin 0.3% Otic Soln] 5 drops BOTH EARS BID 7 Days #1 bottle Is patient prescribed a controlled substance at d/c from ED?: No Referrals: Jovi Berry MD [Primary Care Provider] - 1-2 days Time of Disposition: 17:18
[2018-09-19] MEDS ORDERED: OFLOXACIN 0.3% OPHTH DROPS 5 ML BOTTLE BOTH EARS STA (17:17)
[2018-09-19] MEDS ORDERED: KETOROLAC 30 MG/ML 1 ML VIAL IM STA (17:18)
== END 2018-09-19 17:47 | disposition home or self-care (01) ==
LOC: EC 15:02
DX: H60.93 Unspecified otitis externa, bilateral (principal); F41.9 Anxiety disorder, unspecified; F32.9 Major depressive disorder, single episode, unspecified; Z87.891 Personal history of nicotine dependence; Z79.899 Other long term (current) drug therapy
CPT/HCPCS: 99282; J1885

== ENCOUNTER 2019-01-03 09:25 | Emergency (ER) | payer OTHER ==
[2019-01-03 09:32] VITALS: BP 110/77; RESP 18; TEMP 98.2
[2019-01-03] MEDS ORDERED: predniSONE 20 MG TAB PO STA (10:12)
[2019-01-03] MEDS ORDERED: IPRATROPIUM-ALBUTEROL 3 ML NEB INHALATION STA (10:12)
[2019-01-03 10:32] VITALS: PULSE 76
--- NOTE | 2019-01-03 10:34 | XR ---
EXAMINATION TYPE: XR chest 2V DATE OF EXAM: 01/03/2019 COMPARISON: Prior chest x-ray 11/28/2017 HISTORY: Cough TECHNIQUE: Frontal and lateral views of the chest are obtained. FINDINGS: There is no focal air space opacity, pleural effusion, or pneumothorax seen. The cardiac silhouette size is within normal limits. The osseous structures are intact. IMPRESSION: No acute cardiopulmonary process.
--- NOTE | 2019-01-03 10:58 | ED ---
URI HPI - General Chief Complaint: Upper Respiratory Infection Stated Complaint: cough, congestion Time Seen by Provider: 01/03/19 09:46 Source: patient, RN notes reviewed, old records reviewed Mode of arrival: ambulatory Limitations: no limitations - History of Present Illness Initial Comments: Patient is a 28-year-old female, she presents today for evaluation of "cottage cheese-looking phlegm". Patient reports that symptoms started today. She's had a history of some dizziness, and complains of chest tightness with coughing. Patient states that it is occasionally the room spinning she does complain of upper respiratory and sinus congestion. - Related Data Home Medications Medication Instructions Recorded Confirmed ALPRAZolam [Xanax] 2 mg PO BID 09/19/18 09/19/18 Acetaminophen/Pamabrom [Midol 1 tab PO QID PRN 09/19/18 09/19/18 Caplet] Sertraline [Zoloft] 50 mg PO DAILY 09/19/18 09/19/18 Previous Rx's Medication Instructions Recorded Amoxicillin 500 mg PO Q8H 7 Days #21 capsule 09/19/18 Ofloxacin 0.3% Otic Soln [Floxin 5 drops BOTH EARS BID 7 Days #1 09/19/18 0.3% Otic Soln] bottle Albuterol Inhaler [Ventolin Hfa 1 - 2 puff INHALATION RT-Q6H PRN 01/03/19 Inhaler] #1 inhaler Azithromycin [Zithromax Z-pack] 0 mg PO DIRECTED #6 tab 01/03/19 methylPREDNISolone Dose Pack 4 mg PO DIRECTED #21 package 01/03/19 [Medrol Dose Pack] Allergies Allergy/AdvReac Type Severity Reaction Status Date / Time No Known Allergies Allergy Verified 01/03/19 09:28 Review of Systems ROS Statement: Those systems with pertinent positive or pertinent negative responses have been documented in the HPI. ROS Other: All systems not noted in ROS Statement are negative. Past Medical History Past Medical History: Asthma, GERD/Reflux Additional Past Medical History / Comment(s): irregular periods History of Any Multi-Drug Resistant Organisms: None Reported Past Surgical History: Adenoidectomy, Tonsillectomy Past Anesthesia/Blood Transfusion Reactions: No Reported Reaction Past Psychological History: ADD/ADHD, Anxiety, Bipolar, Depression Smoking Status: Former smoker Past Alcohol Use History: Occasional Past Drug Use History: Marijuana - Past Family History Mother Family Medical History: Cancer General Exam - General Exam Comments Initial Comments: 28-year-old female. Alert and oriented. No distress. General: Well appearing, well nourished, in no distress. Oriented x 3, normal mood and affect . Ambulating without difficulty. Skin: Good turgor, no rash, unusual bruising or prominent lesions Hair: Normal texture and distribution. HEENT: Head: Normocephalic, atraumatic, no visible or palpable masses, depressions, or scaring. Eyes: Visual acuity intact, conjunctiva clear, sclera non-icteric, EOM intact, PERRL. Ears: EACs clear, TMs translucent & cone of light visualized. hearing intact. Nose: No external lesions, mucosa non-inflamed, septum and turbinates normal Mouth: Mucous membranes moist, no mucosal lesions. Heart: No cardiomegaly or thrills; regular rate and rhythm, no murmur or gallop Lungs: Minimal wheezing. Abdomen: Bowel sounds normal, no tenderness, organomegaly, masses, or hernia Back: Spine normal without deformity or tenderness, no CVA tenderness Extremities: No amputations or deformities, cyanosis, edema or varicosities, peripheral pulses intact Musculoskeletal: Normal gait and station. No misalignment, asymmetry, crepitation, defects, tenderness, masses, effusions, decreased range of motion, instability, atrophy or abnormal strength or tone in the head, neck, spine, ribs, pelvis or extremities. Neurologic: CN 2-12 normal. Sensation to pain, touch, and proprioception normal. DTRs normal in upper and lower extremities. No pathologic reflexes. Psychiatric: Oriented X3, intact recent and remote memory, judgment and insight, normal mood and affect. Limitations: no limitations Course Vital Signs 01/03/19 01/03/19 01/03/19 09:29 10:23 10:31 Temperature 98.2 F Pulse Rate 86 72 76 Respiratory 18 Rate Blood Pressure 110/77 O2 Sat by Pulse 95 Oximetry Medical Decision Making - Medical Decision Making Treatment in her female presents to the breasts or congestion, cough for the past few days. She states she coughed up a cut she is appearance of phlegm. Patient also complains of dizziness, concern for vertigo and inner ear infection. Patient was given 1 dose of prednisone, breathing treatment. She does feel better at this time chest x-ray was negative. Discussed the Patient can be discharged at this time with prescriptions for treating bronchitis and she does have meclizine at home for vertigo. Patient is agreeable treatment plan. Discussed using decongestant medications. She requests a work note. - Radiology Data Radiology results: report reviewed Chest x-rays negative for any acute cardiopulmonary process Disposition Clinical Impression: URI (upper respiratory infection), Bronchitis Disposition: HOME SELF-CARE Condition: Good Instructions (If sedation given, give patient instructions): Upper Respiratory Infection (ED) Additional Instructions: Please use medication as discussed. Please follow up with family doctor if symptoms have not improved over the next two days. Please return to the emergency room if your symptoms increase or worsen or for any other concerns. Prescriptions: methylPREDNISolone Dose Pack [Medrol Dose Pack] 4 mg PO DIRECTED #21 package Albuterol Inhaler [Ventolin Hfa Inhaler] 1 - 2 puff INHALATION RT-Q6H PRN #1 inhaler PRN Reason: Shortness Of Breath Azithromycin [Zithromax Z-pack] 0 mg PO DIRECTED #6 tab Is patient prescribed a controlled substance at d/c from ED?: No Referrals: Jovi Berry MD [Primary Care Provider] - 1-2 days Time of Disposition: 11:02
== END 2019-01-03 11:28 | disposition home or self-care (01) ==
LOC: EC 09:25
DX: J40 Bronchitis, not specified as acute or chronic (principal); J06.9 Acute upper respiratory infection, unspecified; R42 Dizziness and giddiness; F41.9 Anxiety disorder, unspecified; F31.9 Bipolar disorder, unspecified; Z79.899 Other long term (current) drug therapy; Z87.891 Personal history of nicotine dependence
CPT/HCPCS: 99284; 94640; 71046; J7512

== ENCOUNTER 2019-03-10 03:05 | Emergency (ER) | payer OTHER ==
[2019-03-10] MEDS ORDERED: SODIUM CHLORIDE 0.9% 1,000 ML IV STA (03:59)
--- NOTE | 2019-03-10 04:03 | ED ---
Abdominal Pain HPI - General Chief Complaint: Abdominal Pain Stated Complaint: Abd Pain Source: patient Mode of arrival: ambulatory Limitations: no limitations - History of Present Illness Initial Comments: Katheryn is a 88-year-old female with past medical history of PCO S and i rregular menses. Patient presents the ER today for evaluation of generalized abdominal pain. Patient states that actually 4 weeks ago she had a menses, 2 weeks later she had another very heavy menses and was passing large clots she contacted her gynecology office who advised her that she could be having a miscarriage so she never took a test never had a positive test. Shortly after that her and her son both got a GI illness she had nausea vomiting for multiple days. Patient states that throughout the day yesterday she have any nausea or vomiting but during the evening developed crampy lower abdominal pain which is similar to previous cyst pain. Patient reports with all of this going on she just felt she needed to come to the hospital. - Related Data Home Medications Medication Instructions Recorded Confirmed ALPRAZolam [Xanax] 2 mg PO BID 09/19/18 09/19/18 Acetaminophen/Pamabrom [Midol 1 tab PO QID PRN 09/19/18 09/19/18 Caplet] Sertraline [Zoloft] 50 mg PO DAILY 09/19/18 09/19/18 Previous Rx's Medication Instructions Recorded Amoxicillin 500 mg PO Q8H 7 Days #21 capsule 09/19/18 Ofloxacin 0.3% Otic Soln [Floxin 5 drops BOTH EARS BID 7 Days #1 09/19/18 0.3% Otic Soln] bottle Albuterol Inhaler [Ventolin Hfa 1 - 2 puff INHALATION RT-Q6H PRN 01/03/19 Inhaler] #1 inhaler Azithromycin [Zithromax Z-pack] 0 mg PO DIRECTED #6 tab 01/03/19 methylPREDNISolone Dose Pack 4 mg PO DIRECTED #21 package 01/03/19 [Medrol Dose Pack] Allergies Allergy/AdvReac Type Severity Reaction Status Date / Time No Known Allergies Allergy Verified 03/10/19 03:20 Review of Systems ROS Statement: Those systems with pertinent positive or pertinent negative responses have been documented in the HPI. ROS Other: All systems not noted in ROS Statement are negative. Past Medical History Past Medical History: Asthma, GERD/Reflux Additional Past Medical History / Comment(s): irregular periods History of Any Multi-Drug Resistant Organisms: None Reported Past Surgical History: Adenoidectomy, Tonsillectomy Past Anesthesia/Blood Transfusion Reactions: No Reported Reaction Past Psychological History: ADD/ADHD, Anxiety, Bipolar, Depression Smoking Status: Current every day smoker Past Alcohol Use History: Occasional Past Drug Use History: None Reported, Marijuana - Past Family History Mother Family Medical History: Cancer General Exam - General Exam Comments Initial Comments: Physical Exam GENERAL: Patient is well-developed and well-nourished. Patient is nontoxic and well- hydrated and is in no distress. HENT: Normocephalic, Atraumatic. EYES: PERRL, EOMI PULMONARY: Unlabored respirations. No audible rales rhonchi or wheezing was noted. CARDIOVASCULAR: There is a regular rate and rhythm without any murmurs gallops or rubs. ABDOMEN: Soft and nontender with normal bowel sounds. Non-peritoneal SKIN: Skin is clear with no lesions or rashes and otherwise unremarkable. : Deferred NEUROLOGIC: Patient is alert and oriented x3. Moving all extremities spontaneously MUSCULOSKELETAL: Normal extremities with adequate strength and full range of motion. No lower extremity swelling or edema. No calf tenderness. PSYCHIATRIC: Normal psychiatric evaluation. Limitations: no limitations Course Vital Signs 03/10/19 03/10/19 03/10/19 03:18 05:30 07:34 Temperature 98.3 F 97.5 F L Pulse Rate 104 H 72 53 L Respiratory 20 18 17 Rate Blood Pressure 147/91 104/77 98/69 O2 Sat by Pulse 96 99 98 Oximetry 03/10/19 08:00 Temperature Pulse Rate 64 Respiratory 16 Rate Blood Pressure 99/54 O2 Sat by Pulse 98 Oximetry Medical Decision Making - Medical Decision Making The patient was seen and evaluated history is obtained from the patient Labs and imaging were ordered Labs no significant acute abnormalities, urinalysis is signs of dehydration no obvious infection Patient had mild improvement in her pain with Toradol however continued to be in pain therefore morphine was ordered prior to ultrasound Ultrasound was obtained due to history of PCO S. Ultrasound with no acute abnormalities no enlarged ovaries, no signs of torsion, no free fluid in the abdomen Upon reevaluation patient's much more comfortable, feels reassured by the negative workup and is comfortable with plan for discharge home. - Lab Data Result diagrams: 03/10/19 04:17 03/10/19 04:17 Lab Results 03/10/19 03/10/19 03/10/19 Range/Units 04:17 04:17 04:17 WBC (3.8-10.6) k/uL RBC (3.80-5.40) m/uL Hgb (11.4-16.0) gm/dL Hct (34.0-46.0) % MCV (80.0-100.0) fL MCH (25.0-35.0) pg MCHC (31.0-37.0) g/dL RDW (11.5-15.5) % Plt Count (150-450) k/uL Neutrophils % % Lymphocytes % % Monocytes % % Eosinophils % % Basophils % % Neutrophils # (1.3-7.7) k/uL Lymphocytes # (1.0-4.8) k/uL Monocytes # (0-1.0) k/uL Eosinophils # (0-0.7) k/uL Basophils # (0-0.2) k/uL Sodium 136 L (137-145) mmol/L Potassium 4.4 (3.5-5.1) mmol/L Chloride 106 (98-107) mmol/L Carbon Dioxide 24 (22-30) mmol/L Anion Gap 6 mmol/L BUN 13 (7-17) mg/dL Creatinine 0.51 L (0.52-1.04) mg/dL Est GFR (CKD-EPI)AfAm >90 (>60 ml/min/1.73 sqM) Est GFR (CKD-EPI)NonAf >90 (>60 ml/min/1.73 sqM) Glucose 95 (74-99) mg/dL Calcium 9.0 (8.4-10.2) mg/dL Total Bilirubin 0.3 (0.2-1.3) mg/dL AST 20 (14-36) U/L ALT 14 (4-34) U/L Alkaline Phosphatase 45 (38-126) U/L Total Protein 6.0 L (6.3-8.2) g/dL Albumin 3.6 (3.5-5.0) g/dL Amylase <30 L (30-110) U/L Lipase 53 (23-300) U/L Urine Color Yellow Urine Appearance Cloudy H (Clear) Urine pH 5.5 (5.0-8.0) Ur Specific [place] 1.033 (1.001-1.035) Urine Protein 1+ H (Negative) Urine Glucose (UA) Negative (Negative) Urine Ketones Trace H (Negative) Urine Blood Negative (Negative) Urine Nitrite Negative (Negative) Urine Bilirubin Negative (Negative) Urine Urobilinogen 2.0 (<2.0) mg/dL Ur Leukocyte Esterase Negative (Negative) Urine RBC 8 H (0-5) /hpf Urine WBC 2 (0-5) /hpf Ur Squamous Epith Cells 8 H (0-4) /hpf Calcium Oxalate Crystal Occasional H (None) /hpf Urine Bacteria Rare H (None) /hpf Hyaline Casts 1 (0-2) /lpf Urine Mucus Occasional H (None) /hpf Urine HCG, Qual Not Detected (Not Detectd) 03/10/19 Range/Units 04:17 WBC 11.7 H (3.8-10.6) k/uL RBC 4.47 (3.80-5.40) m/uL Hgb 13.6 (11.4-16.0) gm/dL Hct 40.4 (34.0-46.0) % MCV 90.3 (80.0-100.0) fL MCH 30.4 (25.0-35.0) pg MCHC 33.7 (31.0-37.0) g/dL RDW 13.4 (11.5-15.5) % Plt Count 368 (150-450) k/uL Neutrophils % 59 % Lymphocytes % 31 % Monocytes % 4 % Eosinophils % 3 % Basophils % 1 % Neutrophils # 6.9 (1.3-7.7) k/uL Lymphocytes # 3.7 (1.0-4.8) k/uL Monocytes # 0.5 (0-1.0) k/uL Eosinophils # 0.4 (0-0.7) k/uL Basophils # 0.1 (0-0.2) k/uL Sodium (137-145) mmol/L Potassium (3.5-5.1) mmol/L Chloride (98-107) mmol/L Carbon Dioxide (22-30) mmol/L Anion Gap mmol/L BUN (7-17) mg/dL Creatinine (0.52-1.04) mg/dL Est GFR (CKD-EPI)AfAm (>60 ml/min/1.73 sqM) Est GFR (CKD-EPI)NonAf (>60 ml/min/1.73 sqM) Glucose (74-99) mg/dL Calcium (8.4-10.2) mg/dL Total Bilirubin (0.2-1.3) mg/dL AST (14-36) U/L ALT (4-34) U/L Alkaline Phosphatase (38-126) U/L Total Protein (6.3-8.2) g/dL Albumin (3.5-5.0) g/dL Amylase (30-110) U/L Lipase (23-300) U/L Urine Color Urine Appearance (Clear) Urine pH (5.0-8.0) Ur Specific [place] (1.001-1.035) Urine Protein (Negative) Urine Glucose (UA) (Negative) Urine Ketones (Negative) Urine Blood (Negative) Urine Nitrite (Negative) Urine Bilirubin (Negative) Urine Urobilinogen (<2.0) mg/dL Ur Leukocyte Esterase (Negative) Urine RBC (0-5) /hpf Urine WBC (0-5) /hpf Ur Squamous Epith Cells (0-4) /hpf Calcium Oxalate Crystal (None) /hpf Urine Bacteria (None) /hpf Hyaline Casts (0-2) /lpf Urine Mucus (None) /hpf Urine HCG, Qual (Not Detectd) Disposition Clinical Impression: Abdominal pain Disposition: HOME SELF-CARE Condition: Stable Instructions (If sedation given, give patient instructions): Abdominal Pain (ED) Is patient prescribed a controlled substance at d/c from ED?: No Referrals: Jovi Berry MD [Primary Care Provider] - 1-2 days
[2019-03-10 04:42] LABS: Basophils # (A) 0.1 k/uL (0-0.2); Basophils % (A) 1 %; Eosinophils # (A) 0.4 k/uL (0-0.7); Eosinophils % (A) 3 %; HCT 40.4 % (34.0-46.0); HGB 13.6 gm/dL (11.4-16.0); Lymphocytes # (A) 3.7 k/uL (1.0-4.8); Lymphocytes % (A) 31 %; MCH 30.4 pg (25.0-35.0); MCHC 33.7 g/dL (31.0-37.0); MCV 90.3 fL (80.0-100.0); Mean Platelet Volume 8.5; Monocytes # (A) 0.5 k/uL (0-1.0); Monocytes % (A) 4 %; Neutrophils # (A) 6.9 k/uL (1.3-7.7); Neutrophils % (A) 59 %; Platelet Count 368 k/uL (150-450); RBC 4.47 m/uL (3.80-5.40); RDW 13.4 % (11.5-15.5); WBC 11.7 k/uL (3.8-10.6)
[2019-03-10 04:47] LABS: Appearance,Urine Cloudy (Clear); Bacteria,Urine Rare /hpf; Bilirubin,Urine Negative (Negative); Blood,Urine Negative (Negative); Calcium Oxalate Crystals,Urine Occasional /hpf; Color,Urine Yellow; Glucose,Urine (UA) Negative (Negative); Hyaline Casts,Urine 1 /lpf (0-2); Ketones,Urine Trace (Negative); Leukocyte Esterase,Urine Negative (Negative); Mucus,Urine Occasional /hpf; Nitrite,Urine Negative (Negative); PH, Urine 5.5 (5.0-8.0); Protein,Urine 1+ (Negative); RBC,Urine 8 /hpf (0-5); Specific Gravity,Urine 1.033 (1.001-1.035); Squamous Epithelial Cell,Urine 8 /hpf (0-4); WBC,Urine 2 /hpf (0-5)
[2019-03-10 04:53] LABS: ALT 14 U/L (4-34); AST 20 U/L (14-36); African American GFR (CKD) >90 (>60 ml/min/1.73 sqM); Albumin 3.6 g/dL (3.5-5.0); Alkaline Phosphatase 45 U/L (38-126); Amylase <30 U/L (30-110); Anion Gap 6 mmol/L; Blood Urea Nitrogen 13 mg/dL (7-17); Carbon Dioxide 24 mmol/L (22-30); Chloride 106 mmol/L (98-107); Glucose 95 mg/dL (74-99); Non-African American GFR(CKD) >90 (>60 ml/min/1.73 sqM); Potassium 4.4 mmol/L (3.5-5.1); Sodium 136 mmol/L (137-145); Total Bilirubin 0.3 mg/dL (0.2-1.3)
[2019-03-10] MEDS ORDERED: KETOROLAC 30 MG/ML 1 ML VIAL IVP ONE (04:57)
[2019-03-10 05:32] VITALS: TEMP 97.5
[2019-03-10] MEDS ORDERED: MORPHINE SULFATE 4 MG/ML SYRINGE IVP STA (06:42)
--- NOTE | 2019-03-10 07:28 | US ---
EXAMINATION TYPE: US transvaginal DATE OF EXAM: 03/10/2019 COMPARISON: Previous study dated 10/17/1716. CLINICAL HISTORY: pelvic pain, hx PCOS. TECHNIQUE: Transvaginal (TV). Date of LMP: 02/24/2019 EXAM MEASUREMENTS: Uterus: 8.4 x 4.1 x 6.1 cm Endometrial Stripe: 1.0 cm Right Ovary: 3.2 x 2.6 x 2.6 cm Left Ovary: 2.9 x 1.9 x 2.8 cm 1. Uterus: Anteverted wnl 2. Endometrium: wnl 3. Right Ovary: wnl 4. Left Ovary: wnl Spectral, color and waveform doppler imaging shows good arterial and venous flow within the ovaries ; there is no evidence for ovarian torsion. 5. Bilateral Adnexa: wnl 6. Posterior cul-de-sac: no free fluid IMPRESSION: NORMAL PELVIC ULTRASOUND.
[2019-03-10 08:03] VITALS: BP 99/54; PULSE 64; RESP 16
== END 2019-03-10 08:00 | disposition home or self-care (01) ==
LOC: EC 03:05
DX: R10.84 Generalized abdominal pain (principal); F41.9 Anxiety disorder, unspecified; F32.9 Major depressive disorder, single episode, unspecified; F17.200 Nicotine dependence, unspecified, uncomplicated; Z79.899 Other long term (current) drug therapy
CPT/HCPCS: 36415; 80053; 82150; 83690; 85025; 81001; 81025; 93975; 76830; 99284; 96374; 96375; 96361 ×2; J2270; J1885

== ENCOUNTER 2020-10-04 20:10 | Emergency (ER) | payer OTHER ==
[2020-10-04 20:20] VITALS: BP 132/90; PULSE 120; RESP 21; TEMP 98.3
[2020-10-04] MEDS ORDERED: LORazepam 1 MG TAB PO STA (20:53)
--- NOTE | 2020-10-04 20:55 | ED ---
Psych HPI - General Chief Complaint: Psychiatric Symptoms Stated Complaint: Mental health Time Seen by Provider: 10/04/20 20:23 Source: patient Mode of arrival: ambulatory - History of Present Illness Initial Comments: 30-year-old female presents to emergency department presenting to emergency Department for psychiatric evaluation. Patient reports history of crushing, anxiety and bipolar disorder. States she is currently medication. States recently she's been undergoing a lot of stress due to a divorce. Patient reports she feels that she is losing everything in her life. States her anxiety has significantly increased. Her cousin is also present in the room. She reports suicidal thoughts with plans but would not elaborate on the plan. Denies any homicidal thoughts or ideations. - Related Data Home Medications Medication Instructions Recorded Confirmed ALPRAZolam [Xanax] 2 mg PO BID 09/19/18 09/19/18 Acetaminophen/Pamabrom [Midol 1 tab PO QID PRN 09/19/18 09/19/18 Caplet] Sertraline [Zoloft] 50 mg PO DAILY 09/19/18 09/19/18 Previous Rx's Medication Instructions Recorded Amoxicillin 500 mg PO Q8H 7 Days #21 capsule 09/19/18 Ofloxacin 0.3% Otic Soln [Floxin 5 drops BOTH EARS BID 7 Days #1 09/19/18 0.3% Otic Soln] bottle Albuterol Inhaler (Mhu) [Ventolin 1 - 2 puff INHALATION RT-Q6H PRN 01/03/19 Hfa Inhaler (Mhu)] #1 inhaler Azithromycin [Zithromax Z-pack (6 0 mg PO DIRECTED #6 tab 01/03/19 tabs)] methylPREDNISolone Dose Pack 4 mg PO DIRECTED #21 package 01/03/19 [Medrol Dose Pack] ALPRAZolam [Xanax] 1 mg PO Q8HR PRN 3 Days #9 tab 10/04/20 Allergies Allergy/AdvReac Type Severity Reaction Status Date / Time No Known Allergies Allergy Verified 10/04/20 20:20 Review of Systems ROS Statement: Those systems with pertinent positive or pertinent negative responses have been documented in the HPI. ROS Other: All systems not noted in ROS Statement are negative. Past Medical History Past Medical History: Asthma, GERD/Reflux Additional Past Medical History / Comment(s): irregular periods History of Any Multi-Drug Resistant Organisms: None Reported Past Surgical History: Adenoidectomy, Tonsillectomy Past Anesthesia/Blood Transfusion Reactions: No Reported Reaction Past Psychological History: ADD/ADHD, Anxiety, Bipolar, Depression Smoking Status: Current every day smoker Past Alcohol Use History: Occasional Past Drug Use History: Marijuana - Past Family History Mother Family Medical History: Cancer General Exam Limitations: no limitations General appearance: alert, in no apparent distress, anxious, obese Head exam: Present: atraumatic, normocephalic, normal inspection Eye exam: Present: normal appearance, PERRL, EOMI Pupils: Present: normal accommodation ENT exam: Present: normal exam, normal oropharynx, mucous membranes moist Neck exam: Present: normal inspection, full ROM. Absent: tenderness, lymphadenopathy Respiratory exam: Present: normal lung sounds bilaterally. Absent: respiratory distress Cardiovascular Exam: Present: regular rate, normal rhythm, normal heart sounds. Absent: systolic murmur GI/Abdominal exam: Present: soft. Absent: distended, tenderness, guarding, rebound Extremities exam: Present: normal inspection, full ROM, normal capillary refill Back exam: Present: normal inspection, full ROM Neurological exam: Present: alert, oriented X3 Psychiatric exam: Present: normal affect, normal mood, anxious Skin exam: Present: warm, dry, intact, normal color Course Vital Signs 10/04/20 20:17 Temperature 98.3 F Pulse Rate 120 H Respiratory 21 Rate Blood Pressure 132/90 O2 Sat by Pulse 96 Oximetry Medical Decision Making - Medical Decision Making 30-year-old female presents to emergency department presenting to emergency Department for psychiatric evaluation. On Physical examination, patient is anxious and crying. Patient was given Ativan for symptomatically relief. EPS evaluated patient and they will discharge the patient with outpatient follow-up to [facility]. EPS recommended a three-day course of Xanax until she is able to follow-up with [facility]. Return parameters discussed the patient with worsening ago. Case discussed with physician. Disposition Clinical Impression: Adjustment reaction of adult life Disposition: HOME SELF-CARE Condition: Stable Instructions (If sedation given, give patient instructions): Anxiety (ED) Additional Instructions: Please return to the Emergency Department if symptoms worsen or any other concerns. Prescriptions: ALPRAZolam [Xanax] 1 mg PO Q8HR PRN 3 Days #9 tab PRN Reason: Anxiety Is patient prescribed a controlled substance at d/c from ED?: No Referrals: Jovi Berry MD [Primary Care Provider] - 1-2 days Time of Disposition: 22:22
== END 2020-10-04 22:24 | disposition home or self-care (01) ==
LOC: EC 20:10
DX: F43.20 Adjustment disorder, unspecified (principal); F41.9 Anxiety disorder, unspecified; J45.909 Unspecified asthma, uncomplicated; F17.200 Nicotine dependence, unspecified, uncomplicated; Z79.899 Other long term (current) drug therapy
CPT/HCPCS: 82075; 99284

== ENCOUNTER 2021-02-24 14:42 | Observation (INO) | payer OTHER ==
[2021-02-24] MEDS ORDERED: SODIUM CHLORIDE 0.9% 1,000 ML IV STA (17:37)
[2021-02-24] MEDS ORDERED: KETOROLAC 15 MG/ML 1 ML VIAL IVP STA (17:37)
[2021-02-24] MEDS ORDERED: ONDANSETRON 4 MG/2 ML VIAL IVP STA ×2 (17:37→20:25)
[2021-02-24] MEDS ORDERED: HYDROmorphone 0.5 MG/0.5 ML SYRINGE IVP STA ×3 (17:37→19:44)
--- NOTE | 2021-02-24 17:41 | ED ---
General Adult HPI - General Chief complaint: Abdominal Pain Stated complaint: abd/shoulder pain Time Seen by Provider: 02/24/21 17:00 Source: patient, RN notes reviewed, old records reviewed Mode of arrival: ambulatory - History of Present Illness Initial comments: This is a 30-year-old female who presents emergency Department complaining of right upper quadrant pain. Patient states she started intermittently about a month ago and then over the last week been there pretty constant. Patient states the pain is so severe she vomited. Patient states the pain radiates to her back and up into her shoulder. Patient states it hurts take a deep breath. Patient states she has no fever or chills that she knows of she's not short of breath. Patient denies chest pain difficulty breathing. Patient denies any chest pain or palpitation. Patient denies any dysuria hematuria urinary frequency. Patient denies any diarrhea. - Related Data Home Medications Medication Instructions Recorded Confirmed Venlafaxine HCl ER [Effexor Xr] 75 mg PO DAILY 02/24/21 02/24/21 traZODone HCL [Desyrel] 100 mg PO HS 02/24/21 02/24/21 Allergies Allergy/AdvReac Type Severity Reaction Status Date / Time No Known Allergies Allergy Verified 02/24/21 19:59 Review of Systems ROS Statement: Those systems with pertinent positive or pertinent negative responses have been documented in the HPI. ROS Other: All systems not noted in ROS Statement are negative. Past Medical History Past Medical History: Asthma, GERD/Reflux Additional Past Medical History / Comment(s): irregular periods History of Any Multi-Drug Resistant Organisms: None Reported Past Surgical History: Adenoidectomy, Tonsillectomy Past Anesthesia/Blood Transfusion Reactions: No Reported Reaction Past Psychological History: ADD/ADHD, Anxiety, Bipolar, Depression Smoking Status: Former smoker Past Alcohol Use History: Occasional Past Drug Use History: Marijuana - Past Family History Mother Family Medical History: Cancer General Exam - General Exam Comments Initial Comments: GENERAL: Patient is well-developed and well-nourished. Patient is nontoxic and well- hydrated and is in mild distress. ENT: Neck is soft and supple. No significant lymphadenopathy is noted. Oropharynx is clear. Moist mucous membranes. Neck has full range of motion without eliciting any pain. EYES: The sclera were anicteric and conjunctiva were pink and moist. Extraocular movements were intact and pupils were equal round and reactive to light. Eyelids were unremarkable. PULMONARY: Unlabored respirations. Good breath sounds bilaterally. No audible rales rhonchi or wheezing was noted. CARDIOVASCULAR: There is a regular rate and rhythm without any murmurs gallops or rubs. ABDOMEN: Patient has significant right upper quadrant tenderness. SKIN: Skin is clear with no lesions or rashes and otherwise unremarkable. NEUROLOGIC: Patient is alert and oriented x3. Cranial nerves II through XII are grossly intact. Motor and sensory are also intact. Normal speech, volume and content. Symmetrical smile. MUSCULOSKELETAL: Normal extremities with adequate strength and full range of motion. No lower extremity swelling or edema. No calf tenderness. LYMPHATICS: No significant lymphadenopathy is noted PSYCHIATRIC: Normal psychiatric evaluation. Course Vital Signs 02/24/21 02/24/21 02/24/21 15:28 17:44 20:01 Temperature 98.1 F Pulse Rate 85 88 90 Respiratory 18 18 18 Rate Blood Pressure 136/83 139/101 123/78 O2 Sat by Pulse 99 99 95 Oximetry Medical Decision Making - Medical Decision Making EKG shows normal sinus rhythm at 83 bpm AL interval 254 QRS is 84 QT interval 370 QTC is 434 per patient's EKG shows no ST segment elevation or depression. Chest x-ray showed no acute abnormality. Ultrasound the gallbladder showed cholelithiasis but no gallbladder wall thickening and no common bile duct dilatation . No pericholecystic fluid. I spoke with the patient was given hospice agreed to admit the patient and the patient I consult Dr. Espinal - Lab Data Result diagrams: 02/24/21 17:43 02/24/21 17:40 Lab Results 02/24/21 02/24/21 02/24/21 Range/Units 17:40 17:43 17:43 WBC 12.3 H (3.8-10.6) k/uL RBC 4.30 (3.80-5.40) m/uL Hgb 13.1 (11.4-16.0) gm/dL Hct 39.8 (34.0-46.0) % MCV 92.5 (80.0-100.0) fL MCH 30.5 (25.0-35.0) pg MCHC 32.9 (31.0-37.0) g/dL RDW 13.5 (11.5-15.5) % Plt Count 423 (150-450) k/uL MPV 8.1 Neutrophils % 54 % Lymphocytes % 36 % Monocytes % 5 % Eosinophils % 3 % Basophils % 1 % Neutrophils # 6.7 (1.3-7.7) k/uL Lymphocytes # 4.4 (1.0-4.8) k/uL Monocytes # 0.6 (0-1.0) k/uL Eosinophils # 0.4 (0-0.7) k/uL Basophils # 0.1 (0-0.2) k/uL Sodium 140 (137-145) mmol/L Potassium 4.3 (3.5-5.1) mmol/L Chloride 104 (98-107) mmol/L Carbon Dioxide 25 (22-30) mmol/L Anion Gap 11 mmol/L BUN 10 (7-17) mg/dL Creatinine 0.81 (0.52-1.04) mg/dL Est GFR (CKD-EPI)AfAm >90 (>60 ml/min/1.73 sqM) Est GFR (CKD-EPI)NonAf >90 (>60 ml/min/1.73 sqM) Glucose 89 (74-99) mg/dL Plasma Lactic Acid Arvin 1.2 (0.7-2.0) mmol/L Calcium 9.7 (8.4-10.2) mg/dL Total Bilirubin 0.2 (0.2-1.3) mg/dL AST 22 (14-36) U/L ALT 22 (4-34) U/L Alkaline Phosphatase 69 (38-126) U/L Total Protein 7.3 (6.3-8.2) g/dL Albumin 4.2 (3.5-5.0) g/dL Amylase 48 (30-110) U/L Lipase 131 (23-300) U/L Urine Color Urine Appearance (Clear) Urine pH (5.0-8.0) Ur Specific [place] (1.001-1.035) Urine Protein (Negative) Urine Glucose (UA) (Negative) Urine Ketones (Negative) Urine Blood (Negative) Urine Nitrite (Negative) Urine Bilirubin (Negative) Urine Urobilinogen (<2.0) mg/dL Ur Leukocyte Esterase (Negative) Urine RBC (0-5) /hpf Urine WBC (0-5) /hpf Ur Squamous Epith Cells (0-4) /hpf Urine Mucus (None) /hpf Urine HCG, Qual (Not Detectd) 02/24/21 02/24/21 Range/Units 17:48 17:48 WBC (3.8-10.6) k/uL RBC (3.80-5.40) m/uL Hgb (11.4-16.0) gm/dL Hct (34.0-46.0) % MCV (80.0-100.0) fL MCH (25.0-35.0) pg MCHC (31.0-37.0) g/dL RDW (11.5-15.5) % Plt Count (150-450) k/uL MPV Neutrophils % % Lymphocytes % % Monocytes % % Eosinophils % % Basophils % % Neutrophils # (1.3-7.7) k/uL Lymphocytes # (1.0-4.8) k/uL Monocytes # (0-1.0) k/uL Eosinophils # (0-0.7) k/uL Basophils # (0-0.2) k/uL Sodium (137-145) mmol/L Potassium (3.5-5.1) mmol/L Chloride (98-107) mmol/L Carbon Dioxide (22-30) mmol/L Anion Gap mmol/L BUN (7-17) mg/dL Creatinine (0.52-1.04) mg/dL Est GFR (CKD-EPI)AfAm (>60 ml/min/1.73 sqM) Est GFR (CKD-EPI)NonAf (>60 ml/min/1.73 sqM) Glucose (74-99) mg/dL Plasma Lactic Acid Arvin (0.7-2.0) mmol/L Calcium (8.4-10.2) mg/dL Total Bilirubin (0.2-1.3) mg/dL AST (14-36) U/L ALT (4-34) U/L Alkaline Phosphatase (38-126) U/L Total Protein (6.3-8.2) g/dL Albumin (3.5-5.0) g/dL Amylase (30-110) U/L Lipase (23-300) U/L Urine Color Yellow Urine Appearance Cloudy H (Clear) Urine pH 5.5 (5.0-8.0) Ur Specific [place] 1.027 (1.001-1.035) Urine Protein Negative (Negative) Urine Glucose (UA) Negative (Negative) Urine Ketones Negative (Negative) Urine Blood Negative (Negative) Urine Nitrite Negative (Negative) Urine Bilirubin Negative (Negative) Urine Urobilinogen <2.0 (<2.0) mg/dL Ur Leukocyte Esterase Negative (Negative) Urine RBC 2 (0-5) /hpf Urine WBC 2 (0-5) /hpf Ur Squamous Epith Cells 7 H (0-4) /hpf Urine Mucus Rare H (None) /hpf Urine HCG, Qual Not Detected (Not Detectd) Disposition Clinical Impression: Right upper quadrant abdominal pain Disposition: ADMITTED IP TO THIS HOSP Referrals: Jovi Berry MD [Primary Care Provider] - 1-2 days Time of Disposition: 20:04
[2021-02-24 17:59] LABS: Basophils # (A) 0.1 k/uL (0-0.2); Basophils % (A) 1 %; Eosinophils # (A) 0.4 k/uL (0-0.7); Eosinophils % (A) 3 %; HCT 39.8 % (34.0-46.0); HGB 13.1 gm/dL (11.4-16.0); Lymphocytes # (A) 4.4 k/uL (1.0-4.8); Lymphocytes % (A) 36 %; MCH 30.5 pg (25.0-35.0); MCHC 32.9 g/dL (31.0-37.0); MCV 92.5 fL (80.0-100.0); Mean Platelet Volume 8.1; Monocytes # (A) 0.6 k/uL (0-1.0); Monocytes % (A) 5 %; Neutrophils # (A) 6.7 k/uL (1.3-7.7); Neutrophils % (A) 54 %; Platelet Count 423 k/uL (150-450); RDW 13.5 % (11.5-15.5); WBC 12.3 k/uL (3.8-10.6)
[2021-02-24 18:02] LABS: Appearance,Urine Cloudy (Clear); Bilirubin,Urine Negative (Negative); Blood,Urine Negative (Negative); Color,Urine Yellow; Glucose,Urine (UA) Negative (Negative); Ketones,Urine Negative (Negative); Leukocyte Esterase,Urine Negative (Negative); Mucus,Urine Rare /hpf; Nitrite,Urine Negative (Negative); PH, Urine 5.5 (5.0-8.0); Protein,Urine Negative (Negative); RBC,Urine 2 /hpf (0-5); Specific Gravity,Urine 1.027 (1.001-1.035); Squamous Epithelial Cell,Urine 7 /hpf (0-4); Urobilinogen,Urine <2.0 mg/dL (<2.0); WBC,Urine 2 /hpf (0-5)
--- NOTE | 2021-02-24 18:08 | XR ---
EXAMINATION TYPE: XR chest 2V DATE OF EXAM: 02/24/2021 COMPARISON: 01/03/2019 HISTORY: Chest pain TECHNIQUE: Frontal and lateral views of the chest are obtained. FINDINGS: There is no focal air space opacity. No evidence for pneumothorax. No pleural effusion. The cardiac silhouette size is within normal limits. The osseous structures are grossly intact. IMPRESSION: 1. No acute cardiopulmonary process.
[2021-02-24 18:21] LABS: ALT 22 U/L (4-34); AST 22 U/L (14-36); African American GFR (CKD) >90 (>60 ml/min/1.73 sqM); Albumin 4.2 g/dL (3.5-5.0); Alkaline Phosphatase 69 U/L (38-126); Amylase 48 U/L (30-110); Anion Gap 11 mmol/L; Blood Urea Nitrogen 10 mg/dL (7-17); Calcium 9.7 mg/dL (8.4-10.2); Carbon Dioxide 25 mmol/L (22-30); Chloride 104 mmol/L (98-107); Glucose 89 mg/dL (74-99); Lipase 131 U/L (23-300); Non-African American GFR(CKD) >90 (>60 ml/min/1.73 sqM); Potassium 4.3 mmol/L (3.5-5.1); Sodium 140 mmol/L (137-145); Total Bilirubin 0.2 mg/dL (0.2-1.3); Total Protein 7.3 g/dL (6.3-8.2)
--- NOTE | 2021-02-24 19:14 | US ---
EXAMINATION TYPE: US gallbladder DATE OF EXAM: 02/24/2021 COMPARISON: CT CLINICAL HISTORY: Right upper quadrant abdominal pain. RUQ pain. EXAM MEASUREMENTS: Liver Length: 16.9 cm Gallbladder Wall: 0.17 cm CBD: 0.41 cm Right Kidney: 11.3 x 4.9 x 5.5 cm Limited due to gas and patient body habitus. Pancreas: Not well visualized. Liver: Appears wnl. Gallbladder: Multiple hyperechoic foci with posterior shadowing seen within the gallbladder. Evidence for sonographic Sahu's sign: Yes. CBD: Portions seen appear wnl. Right Kidney: No hydronephrosis or masses seen. Limited visibility of lower pole due to gas. IMPRESSION: Cholelithiasis with a casino dealer indicating a sonographic Sahu's sign which is equivocal given lac k of pericholecystic fluid or wall thickening. A nuclear medicine HIDA scan is recommended if there r emains concern for cholecystitis.
[2021-02-24] MEDS ORDERED: SODIUM CHLORIDE 0.9% 1,000 ML IV ONE (20:04)
[2021-02-24] MEDS ORDERED: HYDROmorphone 0.5 MG/0.5 ML SYRINGE IVP PRN (20:05)
[2021-02-24] MEDS ORDERED: ALPRAZolam 0.5 MG TAB PO STA (23:29)
[2021-02-24] MEDS: traZODone HCL 50 MG TAB PO SCH (23:43)
[2021-02-25] MEDS: HYDROmorphone 0.5 MG/0.5 ML SYRINGE IVP PRN ×3 (01:49→19:24)
[2021-02-25] MEDS ORDERED: ONDANSETRON 4 MG/2 ML VIAL ONE (10:09)
[2021-02-25] MEDS ORDERED: ONDANSETRON 4 MG/2 ML VIAL IVP ONE (10:16)
[2021-02-25] MEDS ORDERED: LACTATED RINGERS 1,000 ML IV ONE (10:16)
[2021-02-25] MEDS ORDERED: DEXAMETHASONE SOD PHOSPHATE 4 MG/ML 1 ML VIAL IVP ONE (10:16)
[2021-02-25] MEDS ORDERED: HEPARIN SODIUM,PORCINE/PF 5,000 UNIT/0.5 ML SYRINGE SQ STA (10:18)
[2021-02-25] MEDS ORDERED: HEPARIN SODIUM,PORCINE/PF 5,000 UNIT/0.5 ML SYRINGE SQ ONE (10:20)
[2021-02-25] MEDS ORDERED: HEPARIN SODIUM,PORCINE 5,000 UNIT/ML 1 ML VIAL SQ ONE ×2 (10:22)
--- NOTE | 2021-02-25 10:24 | P.GSCN ---
History of Present Illness History of present illness: History of Present Illness H&P Date: 02/25/21 Chief Complaint: Right upper quadrant pain This is a 30-year-old female who's had complaints of right upper quadrant pain off and on for the last month. Patient's significant right quadrant pain yesterday. She was worked up emergency room found have gallstones. Past Medical History Past Medical History: Asthma, GERD/Reflux Additional Past Medical History / Comment(s): irregular periods History of Any Multi-Drug Resistant Organisms: None Reported Past Surgical History: Adenoidectomy, Tonsillectomy Past Anesthesia/Blood Transfusion Reactions: No Reported Reaction Past Psychological History: ADD/ADHD, Anxiety, Bipolar, Depression Additional Psychological History / Comment(s): goes to [facility]. Smoking Status: Former smoker Past Alcohol Use History: Occasional Past Drug Use History: Marijuana Additional Drug Use History / Comment(s): quit smoking cigarettes 12/2020. marijuana use 2 times daily. - Past Family History Mother Family Medical History: Cancer Medications and Allergies Home Medications Medication Instructions Recorded Confirmed Type Venlafaxine HCl ER [Effexor Xr] 75 mg PO DAILY 02/24/21 02/24/21 History traZODone HCL [Desyrel] 100 mg PO HS 02/24/21 02/24/21 History Allergies Allergy/AdvReac Type Severity Reaction Status Date / Time No Known Allergies Allergy Verified 02/24/21 19:59 Surgical - Exam Vital Signs Temp Pulse Resp BP Pulse Ox 98.1 F 85 18 136/83 99 02/24/21 15:28 02/24/21 15:28 02/24/21 15:28 02/24/21 15:28 02/24/21 15:28 - General well developed, well nourished, no distress - Eyes PERRL - ENT normal pinna - Neck no masses - Respiratory normal expansion - Cardiovascular Rhythm: regular - Abdomen Abdomen: soft, non tender Results - Labs 02/24/21 17:43 02/24/21 17:40 Abnormal Lab Results - Last 24 Hours (Table) 02/24/21 02/24/21 Range/Units 17:43 17:48 WBC 12.3 H (3.8-10.6) k/uL Urine Appearance Cloudy H (Clear) Ur Squamous Epith Cells 7 H (0-4) /hpf Urine Mucus Rare H (None) /hpf Diabetes panel 12/28/21 Range/Units 17:40 Sodium 140 (137-145) mmol/L Potassium 4.3 (3.5-5.1) mmol/L Chloride 104 (98-107) mmol/L Carbon Dioxide 25 (22-30) mmol/L BUN 10 (7-17) mg/dL Creatinine 0.81 (0.52-1.04) mg/dL Glucose 89 (74-99) mg/dL Calcium 9.7 (8.4-10.2) mg/dL AST 22 (14-36) U/L ALT 22 (4-34) U/L Alkaline Phosphatase 69 (38-126) U/L Total Protein 7.3 (6.3-8.2) g/dL Albumin 4.2 (3.5-5.0) g/dL Calcium panel 02/24/21 Range/Units 17:40 Calcium 9.7 (8.4-10.2) mg/dL Albumin 4.2 (3.5-5.0) g/dL Pituitary panel 02/24/21 Range/Units 17:40 Sodium 140 (137-145) mmol/L Potassium 4.3 (3.5-5.1) mmol/L Chloride 104 (98-107) mmol/L Carbon Dioxide 25 (22-30) mmol/L BUN 10 (7-17) mg/dL Creatinine 0.81 (0.52-1.04) mg/dL Glucose 89 (74-99) mg/dL Calcium 9.7 (8.4-10.2) mg/dL Adrenal panel 02/24/21 Range/Units 17:40 Sodium 140 (137-145) mmol/L Potassium 4.3 (3.5-5.1) mmol/L Chloride 104 (98-107) mmol/L Carbon Dioxide 25 (22-30) mmol/L BUN 10 (7-17) mg/dL Creatinine 0.81 (0.52-1.04) mg/dL Glucose 89 (74-99) mg/dL Calcium 9.7 (8.4-10.2) mg/dL Total Bilirubin 0.2 (0.2-1.3) mg/dL AST 22 (14-36) U/L ALT 22 (4-34) U/L Alkaline Phosphatase 69 (38-126) U/L Total Protein 7.3 (6.3-8.2) g/dL Albumin 4.2 (3.5-5.0) g/dL Assessment and Plan Assessment: Right upper quadrant pain. Symptomatic cholelithiasis We'll perform laparoscopic cholecystectomy Past Medical History Past Medical History: Asthma, GERD/Reflux Additional Past Medical History / Comment(s): irregular periods History of Any Multi-Drug Resistant Organisms: None Reported Past Surgical History: Adenoidectomy, Tonsillectomy Past Anesthesia/Blood Transfusion Reactions: No Reported Reaction Past Psychological History: ADD/ADHD, Anxiety, Bipolar, Depression Additional Psychological History / Comment(s): goes to [facility]. Smoking Status: Former smoker Past Alcohol Use History: Occasional Past Drug Use History: Marijuana Additional Drug Use History / Comment(s): quit smoking cigarettes 12/2020. marijuana use 2 times daily. - Past Family History Mother Family Medical History: Cancer Medications and Allergies Home Medications Medication Instructions Recorded Confirmed Type Venlafaxine HCl ER [Effexor Xr] 75 mg PO DAILY 02/24/21 02/24/21 History traZODone HCL [Desyrel] 100 mg PO HS 02/24/21 02/24/21 History Allergies Allergy/AdvReac Type Severity Reaction Status Date / Time No Known Allergies Allergy Verified 02/24/21 19:59 Surgical - Exam Vital Signs Temp Pulse Resp BP Pulse Ox 98.1 F 85 18 136/83 99 02/24/21 15:28 02/24/21 15:28 02/24/21 15:28 02/24/21 15:28 02/24/21 15:28 Results - Labs 02/24/21 17:43 02/24/21 17:40 Abnormal Lab Results - Last 24 Hours (Table) 02/24/21 02/24/21 Range/Units 17:43 17:48 WBC 12.3 H (3.8-10.6) k/uL Urine Appearance Cloudy H (Clear) Ur Squamous Epith Cells 7 H (0-4) /hpf Urine Mucus Rare H (None) /hpf Diabetes panel 02/24/21 Range/Units 17:40 Sodium 140 (137-145) mmol/L Potassium 4.3 (3.5-5.1) mmol/L Chloride 104 (98-107) mmol/L Carbon Dioxide 25 (22-30) mmol/L BUN 10 (7-17) mg/dL Creatinine 0.81 (0.52-1.04) mg/dL Glucose 89 (74-99) mg/dL Calcium 9.7 (8.4-10.2) mg/dL AST 22 (14-36) U/L ALT 22 (4-34) U/L Alkaline Phosphatase 69 (38-126) U/L Total Protein 7.3 (6.3-8.2) g/dL Albumin 4.2 (3.5-5.0) g/dL Calcium panel 02/24/21 Range/Units 17:40 Calcium 9.7 (8.4-10.2) mg/dL Albumin 4.2 (3.5-5.0) g/dL Pituitary panel 02/24/21 Range/Units 17:40 Sodium 140 (137-145) mmol/L Potassium 4.3 (3.5-5.1) mmol/L Chloride 104 (98-107) mmol/L Carbon Dioxide 25 (22-30) mmol/L BUN 10 (7-17) mg/dL Creatinine 0.81 (0.52-1.04) mg/dL Glucose 89 (74-99) mg/dL Calcium 9.7 (8.4-10.2) mg/dL Adrenal panel 02/24/21 Range/Units 17:40 Sodium 140 (137-145) mmol/L Potassium 4.3 (3.5-5.1) mmol/L Chloride 104 (98-107) mmol/L Carbon Dioxide 25 (22-30) mmol/L BUN 10 (7-17) mg/dL Creatinine 0.81 (0.52-1.04) mg/dL Glucose 89 (74-99) mg/dL Calcium 9.7 (8.4-10.2) mg/dL Total Bilirubin 0.2 (0.2-1.3) mg/dL AST 22 (14-36) U/L ALT 22 (4-34) U/L Alkaline Phosphatase 69 (38-126) U/L Total Protein 7.3 (6.3-8.2) g/dL Albumin 4.2 (3.5-5.0) g/dL
[2021-02-25] MEDS ORDERED: LIDOCAINE 1% INJ 10MG/ML (20 ML MDV) ONE (10:25)
[2021-02-25] MEDS ORDERED: ROCURONIUM 10 MG/ML (5 ML VIAL) IV ONE (10:25)
[2021-02-25] MEDS ORDERED: GLYCOPYRROLATE 0.2 MG/ML 2 ML VIAL ONE (10:25)
[2021-02-25] MEDS ORDERED: fentaNYL (PF) 50 MCG/ML 2 ML AMP ONE (10:25)
[2021-02-25] MEDS ORDERED: NEOSTIGMINE 1 MG/ML 10 ML VIAL ONE (10:25)
[2021-02-25] MEDS ORDERED: PROPOFOL 10 MG/ML 20 ML VIAL IV ONE (10:25)
[2021-02-25] MEDS ORDERED: SUCCINYLCHOLINE CHLORIDE 100 MG/5 ML SYR IV ONE (10:25)
[2021-02-25] MEDS ORDERED: MIDAZOLAM 2 MG/2 ML VIAL ONE (10:25)
[2021-02-25] MEDS ORDERED: HYDROmorphone (PF) 1 MG/ML ONE (10:25)
[2021-02-25] MEDS ORDERED: BUPIVACAIN-EPI 0.25%-1:200,000 30 ML VIAL SQ ONE (10:49)
[2021-02-25] MEDS: HYDROmorphone 0.5 MG/0.5 ML SYRINGE IVP ONE ×2 (11:33→11:38)
[2021-02-25] MEDS ORDERED: MEPERIDINE 50 MG/ML SYRINGE IVP ONE (11:45)
[2021-02-25] MEDS ORDERED: SODIUM CHLORIDE 0.9% 1,000 ML IV ONE ×2 (11:54)
[2021-02-25] MEDS: VENLAFAXINE HCL ER 75 MG CAP PO SCH (13:11)
[2021-02-25] MEDS: PANTOPRAZOLE 40 MG/10 ML VIAL IVP SCH (16:37)
[2021-02-25] MEDS: ALPRAZolam 0.25 MG TAB PO PRN (16:37)
--- NOTE | 2021-02-25 18:01 | CONS ---
CONSULTATION DATE OF SERVICE: 02/25/2021 CHIEF COMPLAINT: Right upper quadrant abdominal pain. HISTORY OF PRESENT ILLNESS: This 30-year-old woman with a past medical history of asthma, GERD, irregular periods, adenoidectomy, add, ADHD, anxiety, bipolar, being followed by Dr. Jovi Berry in the outpatient setting, was complaining of right upper quadrant pain for the last one month. The pain was on and off. After persistent pain, severe pain and some nausea, patient came to the emergency room and was found to have cholelithiasis. Dr. Espinal performed laparoscopic cholecystectomy. Patient is being closely monitored. There is no history of any fever, rigors or chills. No history of headache, loss of consciousness, seizures at this time. PAST MEDICAL HISTORY: Asthma, GERD, irregular periods, ADD, ADHD, anxiety, bipolar, depression. HOME MEDICATIONS: Home medications prior to admission include Desyrel and doses are reviewed. ALLERGIES: NONE. FAMILY HISTORY: History of cancer in the family. SOCIAL HISTORY: History of THC, history of smoking. REVIEW OF SYSTEMS: ENT: No diminished hearing. No diminished vision. CARDIOVASCULAR SYSTEM: No angina, palpitations. RESPIRATORY SYSTEM: As mentioned earlier. GI: As mentioned earlier. : No dysuria. NERVOUS SYSTEM: No numbness, weakness. ALLERGY/IMMUNOLOGY: As mentioned earlier. HEMATOLOGY/ONCOLOGY: No history of anemia. ENDOCRINE: No history of diabetes or hypothyroidism. CONSTITUTIONAL: As mentioned earlier. DERMATOLOGY: Negative. RHEUMATOLOGY: Negative. PSYCHIATRY: As mentioned earlier. PHYSICAL EXAMINATION: Patient alert and oriented x3. Pulse 72, blood pressure 105/70, respiration 18, temperature is normal, pulse ox 99% on room air. HEENT: Conjunctivae normal. Oral mucosa moist. NECK: No jugular venous distention. CARDIOVASCULAR: S1, S2 muffled. RESPIRATION: Breath sounds diminished at the bases. No rhonchi. No crackles. ABDOMEN: Soft. Status post laparoscopic surgery. Minimal postoperative tenderness. No guarding. No rigidity. Bowel sounds diminished. LEGS: No edema. No swelling. NERVOUS SYSTEM: Higher functions as mentioned earlier. Moves all 4 limbs. No focal motor or sensory deficit. LYMPHATICS: No lymph node palpable in neck, axillae or groin. SKIN: No ulcer, rash, bleeding. JOINTS: No active deforming arthropathy. LABS: WBC 12.3. UA noted. ASSESSMENT: 1. Right upper quadrant abdominal pain with acute cholelithiasis; symptomatic cholelithiasis, status post laparoscopic cholecystectomy. 2. Increased white count, possibly reactive. 3. History of asthma. 4. History of gastroesophageal reflux disease. 5. History of adenoidectomy. 6. History of tonsillectomy. 7. Attention deficit disorder, attention deficit hyperactivity disorder, anxiety bipolar, depression. 8. Remote history of nicotine dependence. 9. History of THC. 10.Obesity with body mass index of 41.01. 11.FULL CODE. RECOMMENDATIONS AND DISCUSSION: In this 30-year-old woman who presented with multiple complex medical issues, we will monitor the patient closely, continue the current medications, continue symptomatic treatment. Repeat labs. DVT prophylaxis. Incentive spirometry. Otherwise, resume the home medications. Prognosis is guarded because of multiple complex medical issues. A copy of this dictation is being forwarded to Dr. Jovi Berry, who is the primary physician. MMMUKUNDL / ANGELAN: [id number] / MTDD
[2021-02-25] MEDS: traZODone HCL 50 MG TAB PO SCH (21:09)
[2021-02-25] MEDS: HYDROcodone/APAP 5-325MG 1 EACH TAB PO PRN (21:57)
[2021-02-25 22:29] VITALS: RESP 16
[2021-02-26] MEDS: HYDROmorphone 0.5 MG/0.5 ML SYRINGE IVP PRN ×2 (02:01→05:53)
[2021-02-26] MEDS: ALPRAZolam 0.25 MG TAB PO PRN ×2 (02:04→09:05)
[2021-02-26] MEDS: HYDROcodone/APAP 5-325MG 1 EACH TAB PO PRN ×2 (04:19→10:25)
[2021-02-26 08:02] VITALS: BP 107/75; PULSE 85; TEMP 98
[2021-02-26] MEDS: VENLAFAXINE HCL ER 75 MG CAP PO SCH (08:52)
[2021-02-26] MEDS: PANTOPRAZOLE 40 MG/10 ML VIAL IVP SCH (08:52)
[2021-02-26 09:15] LABS: Basophils # (A) 0.04 X 10*3/uL (0.00-0.10); Basophils % (A) 0.3 %; Eosinophils # (A) 0.07 X 10*3/uL (0.04-0.35); Eosinophils % (A) 0.6 %; HCT 36.9 % (37.2-46.3); HGB 11.7 g/dL (12.0-15.0); Lymphocytes # (A) 3.37 X 10*3/uL (0.90-5.00); Lymphocytes % (A) 27.5 %; MCHC 31.7 g/dL (32.0-37.0); MCV 91.3 fL (80.0-97.0); Mean Platelet Volume 10.5 fL (9.5-12.2); Monocytes # (A) 0.74 X 10*3/uL (0.20-1.00); Neutrophils # (A) 7.97 X 10*3/uL (1.80-7.70); Neutrophils % (A) 65.2 %; Platelet Count 387 X 10*3/uL (140-440); RBC 4.04 X 10*6/uL (4.10-5.20); RDW 13.7 % (11.5-14.5); WBC 12.24 X 10*3/uL (4.50-10.00)
[2021-02-26 09:45] LABS: ALT 17 U/L (8-44); AST 12 U/L (13-35); African American GFR (CKD) 149.5 (60.0-200.0); Albumin 3.7 g/dL (3.8-4.9); Albumin/Globulin Ratio 1.76 (1.60-3.17); Alkaline Phosphatase 65 U/L (41-126); Blood Urea Nitrogen 6.1 mg/dL (9.0-27.0); Calcium 8.9 mg/dL (8.7-10.3); Chloride 105 mmol/L (96-109); Globulin 2.1 g/dL (1.6-3.3); Glucose 109 mg/dL (70-110); Potassium 3.9 mmol/L (3.5-5.5); Sodium 136 mmol/L (135-145); Total Bilirubin <0.20 mg/dL (0.30-1.20); Total Protein 5.8 g/dL (6.2-8.2)
--- NOTE | 2021-02-26 13:16 | P.OP ---
Date of Procedure: 02/25/21 Preoperative Diagnosis: acute cholecystitis Postoperative Diagnosis: acute cholecystitis Procedure(s) Performed: laparoscopic cholecystectomy Anesthesia: BONIFACIO Surgeon: Tiago Espinal Estimated Blood Loss (ml): 5 Pathology: other (gallbladder) Condition: stable Disposition: PACU Description of Procedure: The patient was placed on the operating table. The patient received a general endotracheal tube anesthesia. The patients abdomen was prepped and draped in the usual sterile fashion. Through an infraumbilical stab incision, the fascia of the anterior abdominal wall was grasped with a pair of Kochers and then the Veress needle was placed in the peritoneal cavity. Position of the Veress needle was confirmed with positive drop test. The abdomen was then insufflated. After adequate insufflation, the 10 mm trocar was placed in the peritoneal cavity. Following this the laparoscope was placed in the peritoneal cavity. The patient was placed in the head-up, right side up position and then a 5 mm trocar was placed in the right lateral and right subcostal position under direct visualization. A 8 mm trocar was placed in the epigastric position. The gallbladder was grasped in the fundus and infundibulum. Traction on the gallbladder was placed in the lateral and the cephalad positions. The triangle of Calot was visualized.. The cystic duct was bluntly dissected until the union of the cystic duct and common bile duct was seen. A critical view of safety was achieved. The cystic duct was then divided and sealed with the Harmonic scissors. A PDS Endoloop was then placed throughout the cystic duct stump. The cystic artery divided and sealed with the Harmonic scissors. The gallbladder was then removed from the liver bed using Harmonic scissors. The gallbladder was then extracted through the epigastric port site. Operative field was checked for any bleeding spots and Harmonic scissors was used to coagulate the liver bed. The abdomen was irrigated. The trocars were removed. The skin was closed using interrupted 3-0 Vicryl suture. Dermabond dressing were applied. The patient tolerated the procedure well.
--- NOTE | 2021-02-26 13:19 | P.DS ---
Providers Date of admission: 02/24/21 20:04 Expected date of discharge: 02/26/21 Attending physician: Eunice Gunter Consults: 02/24/21 20:04 Consult Physician Urgent Consulting Provider: Tiago Espinal Consult Reason/Comments: Right upper quadrant abdominal pain Do you want consulting provider notified?: Yes Primary care physician: Jovi Berry Hospital Course: this 30-year-old female who underwent laparoscopic cholecystectomy for acute cholecystitis. Please see hospital chart for details. Procedures: Laparoscopic cholecystectomy Patient Condition at Discharge: Good Plan - Discharge Summary Discharge Rx Participant: No New Discharge Prescriptions: New Docusate [Colace] 100 mg PO BID #20 capsule oxyCODONE HCL [OxyIR] 5 mg PO Q6H PRN 3 Days #10 tab PRN Reason: Pain Ibuprofen [Motrin] 600 mg PO Q6HR PRN #40 tab PRN Reason: Pain Acetaminophen Tab [Tylenol] 650 mg PO Q6H #30 tab No Action traZODone HCL [Desyrel] 100 mg PO HS Venlafaxine HCl ER [Effexor Xr] 75 mg PO DAILY Discharge Medication List Venlafaxine HCl ER [Effexor Xr] 75 mg PO DAILY 02/24/21 [History] traZODone HCL [Desyrel] 100 mg PO HS 02/24/21 [History] Acetaminophen Tab [Tylenol] 650 mg PO Q6H #30 tab 02/26/21 [Rx] Docusate [Colace] 100 mg PO BID #20 capsule 02/26/21 [Rx] Ibuprofen [Motrin] 600 mg PO Q6HR PRN #40 tab 02/26/21 [Rx] oxyCODONE HCL [OxyIR] 5 mg PO Q6H PRN 3 Days #10 tab 02/26/21 [Rx] Follow up Appointment(s)/Referral(s): Jovi Berry MD [Primary Care Provider] - 1-2 days
--- NOTE | 2021-02-26 20:14 | PN ---
PROGRESS NOTE DATE OF SERVICE: 02/26/2021 This 30-year-old woman who was admitted with right upper quadrant abdominal pain and cholelithiasis underwent cholecystectomy. No chest pain. No palpitations. No fever. Surgery is planning discharge today. PHYSICAL EXAMINATION: Alert and oriented x3. Pulse 85, blood pressure 107/75, respirations 16, temperature 98.3, pulse ox 96% on room air. HEENT: Conjunctivae normal. NECK: No jugular venous distention. CARDIOVASCULAR: S1, S2 muffled. RESPIRATION: Breath sounds diminished at the bases. ABDOMEN: Soft. Status post laparoscopic surgery. Postoperative tenderness, mild. LEGS: No edema. No swelling. NERVOUS SYSTEM: No focal deficit. LABS: Labs at this time show WBC 12.2, hemoglobin 11.7. Other labs are noted. ASSESSMENT: 1. Acute right upper quadrant abdominal pain with acute cholelithiasis, symptomatic, status post laparoscopic cholecystectomy. 2. Increased white count, possibly reactive. 3. History of asthma. 4. History of gastroesophageal reflux disease. 5. History of adenoidectomy. 6. History of tonsillectomy. 7. Attention deficit disorder, attention deficit hyperactivity disorder. 8. History of anxiety, bipolar, depression. 9. Remote history of nicotine dependence. 10.History of THC. 11.Obesity with body mass index of 41.01. 12.FULL CODE. RECOMMENDATIONS AND DISCUSSION: I recommend to continue current medications, continue with the monitoring, symptomatic treatment. Closely follow with primary physician with repeat labs. Surgery is discharging the patient. Rest of the recommendations per Surgery. Further recommendations to follow. Stable. Continue to monitor. Overall prognosis guarded. MMODL / IJN: [id number] /
== END 2021-02-26 13:45 | disposition home or self-care (01) ==
LOC: EC 14:42 → 6NMEDSUR 20:04
PROVIDERS: ADMIT Hospitalist; ATTEND Hospitalist
DX: K80.10 Calculus of gallbladder with chronic cholecystitis without obstruction (principal); K21.9 Gastro-esophageal reflux disease without esophagitis; N92.6 Irregular menstruation, unspecified; J45.909 Unspecified asthma, uncomplicated; Z20.822 Contact with and (suspected) exposure to COVID-19; F90.9 Attention-deficit hyperactivity disorder, unspecified type; F31.9 Bipolar disorder, unspecified; F41.9 Anxiety disorder, unspecified; Z79.899 Other long term (current) drug therapy; F12.90 Cannabis use, unspecified, uncomplicated; E66.9 Obesity, unspecified; Z68.41 Body mass index [BMI] 40.0-44.9, adult; Z87.891 Personal history of nicotine dependence; Z80.9 Family history of malignant neoplasm, unspecified
CPT/HCPCS: 47562; 99285; 96376 ×2; 96374; 96375; 36415; 93005; 81025 ×2; 88304; 80053 ×2; 82150; 83605; 83690; 85025 ×2; 81001; 87635; 71046; 76705; G0378 ×3; J2250; J1644; J1100; J2710; J2175; J0690; J2405 ×2; J2001; J3010; J1170 ×4; J1885; J0330; J2704; C9113 ×2

== ENCOUNTER → 2021-09-22 | Outpatient (CLI) | payer OTHER ==
[2021-09-22 18:55] LABS: ALT 23 U/L (8-44); AST 13 U/L (13-35); African American GFR (CKD) 140.6 (60.0-200.0); Albumin 4.2 g/dL (3.8-4.9); Albumin/Globulin Ratio 1.69 (1.60-3.17); Alkaline Phosphatase 83 U/L (41-126); BUN/Creat Ratio 10.03 Ratio (12.00-20.00); Blood Urea Nitrogen 5.9 mg/dL (9.0-27.0); Calcium 9.3 mg/dL (8.7-10.3); Carbon Dioxide 23.5 mmol/L (20.0-27.5); Chloride 105 mmol/L (96-109); Chol/HDL Ratio 2.88 Ratio; Globulin 2.5 g/dL (1.6-3.3); Glucose 83 mg/dL (70-110); LDL Cholesterol,Calculated 58.2 mg/dL (0.0-131.0); Non-African American GFR(CKD) 121.3 (60.0-200.0); Potassium 4.4 mmol/L (3.5-5.5); Sodium 139 mmol/L (135-145); Total Bilirubin <0.15 mg/dL (0.30-1.20); Total Protein 6.6 g/dL (6.2-8.2)
[2021-09-22 18:58] LABS: Hepatitis B Surface Antigen Nonreactive (Nonreactive); Hepatitis C IgG Antibody Nonreactive (Nonreactive)
[2021-09-22 19:12] LABS: Basophils # (A) 0.08 X 10*3/uL (0.00-0.10); Basophils % (A) 0.6 %; Eosinophils # (A) 0.23 X 10*3/uL (0.04-0.35); Eosinophils % (A) 1.9 %; HCT 39.5 % (37.2-46.3); HGB 12.6 g/dL (12.0-15.0); Immature Grans, Automated 0.3 %; Lymphocytes # (A) 3.89 X 10*3/uL (0.90-5.00); Lymphocytes % (A) 31.4 %; MCH 28.8 pg (27.0-32.0); MCHC 31.9 g/dL (32.0-37.0); MCV 90.4 fL (80.0-97.0); Mean Platelet Volume 11.9 fL (9.5-12.2); Monocytes # (A) 0.71 X 10*3/uL (0.20-1.00); Monocytes % (A) 5.7 %; NRBC Per 100 WBC 0 /100 WBCS (0.0-0.0); Neutrophils # (A) 7.43 X 10*3/uL (1.80-7.70); Neutrophils % (A) 60.1 %; Platelet Count 396 X 10*3/uL (140-440); RBC 4.37 X 10*6/uL (4.10-5.20); RDW 14.2 % (11.5-14.5); WBC 12.38 X 10*3/uL (4.50-10.00)
[2021-09-22 21:00] LABS: HIV 2 AB Non-Reactive (Non-Reactive); HIV AB P24 Non-Reactive (Non-Reactive); HIV P24 AG Non-Reactive (Non-Reactive)
== END | disposition home or self-care (01) ==
LOC: LABWHC1 13:02
PROVIDERS: ATTEND Family Medicine
DX: Z00.00 Encounter for general adult medical examination without abnormal findings (principal); Z11.3 Encounter for screening for infections with a predominantly sexual mode of transmission
CPT/HCPCS: 36415; 80053; 80061; 84443; 85025; 86780; 86803; 87340; 87390

== ENCOUNTER 2021-11-16 12:05 | Emergency (ER) | payer OTHER ==
[2021-11-16 12:28] VITALS: TEMP 97.9
[2021-11-16] MEDS ORDERED: ALPRAZolam 0.5 MG TAB PO STA (12:47)
--- NOTE | 2021-11-16 12:51 | ED ---
Psych HPI - General Chief Complaint: Psychiatric Symptoms Stated Complaint: mental health Time Seen by Provider: 11/16/21 12:34 Source: patient, RN notes reviewed, old records reviewed Mode of arrival: ambulatory - History of Present Illness Initial Comments: 31-year-old female, tearful, alert and oriented presents to the emergency room with complaints of worsening anxiety. She said she did go Dr. Berry today and he recommended she come to the emergency room for evaluation because she had stated she was having suicidal thoughts. Patient denies any suicide intent. States that she does see David at [facility] however she is unable to get in to see because of a family emergency. She was given an appointment with [facility] in December however her anxiety is severe and is reqeusting Xanax which has helped with her anxiety in the past. She states that she has had suicidal intent in the past and did overdose on Benadryl and was hospitalized years ago. She does not have any suicidal ideation at this time. She has had a history of anxiety and bipolar. She was on Abilify in the past which did not help. She's been off medications and out of her Xanax for the past 2 months. She is requesting just Xanax to help with her anxiety at this time. MD Complaint: feels depressed Associated Psychiatric Symptoms: depression, auditory hallucinations History of same: Yes Quality: constant Improves With: none Associated Symptoms: denies other symptoms Treatments Prior to Arrival: other (seen by PCP today and sent to Er) - Related Data Previous Rx's Medication Instructions Recorded ALPRAZolam [Xanax] 0.5 mg PO HS PRN 3 Days #3 tab 11/16/21 hydrOXYzine HCL [Atarax] 25 mg PO TID PRN #15 tab 11/16/21 Allergies Allergy/AdvReac Type Severity Reaction Status Date / Time No Known Allergies Allergy Verified 11/16/21 15:26 Review of Systems ROS Statement: Those systems with pertinent positive or pertinent negative responses have been documented in the HPI. ROS Other: All systems not noted in ROS Statement are negative. Past Medical History Past Medical History: Asthma, GERD/Reflux Additional Past Medical History / Comment(s): irregular periods History of Any Multi-Drug Resistant Organisms: None Reported Past Surgical History: Adenoidectomy, Tonsillectomy Past Anesthesia/Blood Transfusion Reactions: No Reported Reaction Past Psychological History: ADD/ADHD, Anxiety, Bipolar, Depression Smoking Status: Former smoker Past Alcohol Use History: Occasional Past Drug Use History: Marijuana - Past Family History Mother Family Medical History: Cancer General Exam Limitations: no limitations General appearance: alert, in no apparent distress Head exam: Present: atraumatic Eye exam: Absent: scleral icterus, conjunctival injection, periorbital swelling ENT exam: Present: mucous membranes moist Respiratory exam: Absent: respiratory distress, accessory muscle use Cardiovascular Exam: Present: regular rate Extremities exam: Present: full ROM. Absent: tenderness Neurological exam: Present: alert, oriented X3 Psychiatric exam: Present: depressed, anxious, other (tearful). Absent: agitated, flat affect, manic Skin exam: Present: warm, dry, normal color. Absent: cyanosis, diaphoretic Course Vital Signs 11/16/21 11/16/21 12:23 15:41 Temperature 97.9 F Pulse Rate 99 65 Respiratory 20 18 Rate Blood Pressure 133/87 116/76 O2 Sat by Pulse 98 98 Oximetry Medical Decision Making - Medical Decision Making Johanne from [facility] did speak with patient. She is not actively suicidal. She was tearful and anxious on arrival to ER and was given xanax with relief. [facility] nurse states that the patient is stable for discharge as she does have follow-up with [facility]. She was given hydroxyzine for anxiety with 3 doses of Xanax to be taken at bedtime for any anxiety. She was discharged to return to the emergency room with any new or concerning symptoms. She is agreeable to this plan of care. Case was discussed with Dr. Andrade Disposition Clinical Impression: Acute anxiety, Adjustment reaction of adult life Disposition: HOME SELF-CARE Condition: Good Instructions (If sedation given, give patient instructions): Mood Disorders (ED), Anxiety (ED) Additional Instructions: Take hydroxyzine as needed for anxiety. If needed take the Xanax as prescribed. Follow-up with [facility]. Return to the emergency room with any suicidal or homicidal ideations. Prescriptions: hydrOXYzine HCL [Atarax] 25 mg PO TID PRN #15 tab PRN Reason: Anxiety ALPRAZolam [Xanax] 0.5 mg PO HS PRN 3 Days #3 tab PRN Reason: Anxiety Is patient prescribed a controlled substance at d/c from ED?: No Referrals: Jovi Berry MD [Primary Care Provider] - 1-2 days [facility] - 1-2 days Time of Disposition: 15:17
[2021-11-16] MEDS ORDERED: ACETAMINOPHEN TAB 325 MG TAB PO STA (13:13)
[2021-11-16 15:42] VITALS: BP 116/76; PULSE 65; RESP 18
== END 2021-11-16 15:41 | disposition home or self-care (01) ==
LOC: EC 12:05
DX: F41.9 Anxiety disorder, unspecified (principal); F43.20 Adjustment disorder, unspecified; F31.9 Bipolar disorder, unspecified; F90.9 Attention-deficit hyperactivity disorder, unspecified type; J45.909 Unspecified asthma, uncomplicated; K21.9 Gastro-esophageal reflux disease without esophagitis; F12.90 Cannabis use, unspecified, uncomplicated; Z87.891 Personal history of nicotine dependence; Z79.811 Long term (current) use of aromatase inhibitors
CPT/HCPCS: 82075; 99284

== ENCOUNTER → 2022-07-13 | Outpatient (CLI) | payer OTHER ==
--- NOTE | 2022-07-13 10:39 | MM ---
Reason for Exam: Clinical finding. Baseline mammogram. Indicated Problems: Palpable abnormality of both sides for 3 Month(s). Patient History: Menarche at age 8. First Full-Term at age 22. Premenopausal. Maternal grandmother had breast cancer at or over age 50. Maternal aunt had ovarian cancer, age 75. Mother had breast cancer under age 50. Last menstrual period: 07/11/2022 Prior Study Comparison: Patient's first Mammogram. Tissue Density: There are scattered fibroglandular densities. Findings: Analyzed By CAD. There is a palpable marker along the inferior aspect of each breast. Tiny 3 mm nodularity outer aspect of the left cc view middle depth without clear correlate on the MLO view. Suspect a low axillary tail lymph node also on the left characterize by nodularity. Both of these findings should be reassessed in 6 month follow-up. Otherwise, no suspicious microcalcification or other discrete abnormality is seen. Overall Assessment: Incomplete: need additional imaging evaluation, BI-RAD 0 Management: Diagnostic Breast Ultrasound of both breasts. For the patient's palpable areas. Electronically signed and approved by: Juliana Nixon M.D. Radiologist
--- NOTE | 2022-07-13 11:00 | USB ---
Reason for Exam: Clinical finding. Patient History: Menarche at age 8. First Full-Term at age 22. Premenopausal. Maternal grandmother had breast cancer at or over age 50. Maternal aunt had ovarian cancer, age 75. Mother had breast cancer under age 50. Technique: Method: Targeted. Findings: The lower inner quadrant of both breasts, the axilla of the left breast and the retroareolar of the left breast were scanned. Targeted bilateral breast ultrasound to the lower inner quadrant, on the right, 3:00 to 6:00 and on the left, o'clock to 9:00 corresponding to the region of the patient is palpable sites. No solid or cystic lesion is seen. Overall Assessment: Probably benign, BI-RAD 3 Management: Diagnostic Mammogram of the left breast in 6 months. A clinical breast exam by your physician is recommended on an annual basis and results should be correlated with mammographic findings. This exam should not preclude additional follow-up of suspicious palpable abnormalities. Results were given to the patient verbally at the time of exam. Electronically signed and approved by: Juliana Nixon M.D. Radiologist
--- NOTE | 2022-07-13 11:16 | XR ---
EXAMINATION TYPE: XR chest 2V DATE OF EXAM: 07/13/2022 COMPARISON: NONE TECHNIQUE: PA and lateral views submitted. HISTORY: Cough FINDINGS: The lungs are clear and there is no pneumothorax, pleural effusion, or focal pneumonia. Heart size normal and no overt failure. Osseous structures demonstrate hypertrophic and degenerative changes of the spine. IMPRESSION: 1. No acute process.
[2022-07-13 16:28] LABS: Basophils # (A) 0.07 X 10*3/uL (0.00-0.10); Basophils % (A) 0.6 %; Eosinophils # (A) 0.33 X 10*3/uL (0.04-0.35); Eosinophils % (A) 2.6 %; HCT 40.5 % (37.2-46.3); HGB 12.8 g/dL (12.0-15.0); Immature Grans, Automated 0.4 %; Lymphocytes # (A) 3.57 X 10*3/uL (0.90-5.00); Lymphocytes % (A) 28.6 %; MCH 28.7 pg (27.0-32.0); MCHC 31.6 g/dL (32.0-37.0); MCV 90.8 fL (80.0-97.0); Mean Platelet Volume 11.4 fL (9.5-12.2); Monocytes # (A) 0.84 X 10*3/uL (0.20-1.00); Monocytes % (A) 6.7 %; NRBC Per 100 WBC 0 /100 WBCS (0.0-0.0); Neutrophils # (A) 7.62 X 10*3/uL (1.80-7.70); Neutrophils % (A) 61.1 %; Platelet Count 417 X 10*3/uL (140-440); RBC 4.46 X 10*6/uL (4.10-5.20); RDW 14.1 % (11.5-14.5); WBC 12.48 X 10*3/uL (4.50-10.00)
[2022-07-13 17:17] LABS: ALT 19 U/L (8-44); AST 17 U/L (13-35); African American GFR (CKD) 137.1 (60.0-200.0); Albumin 4.2 g/dL (3.8-4.9); Albumin/Globulin Ratio 1.87 (1.60-3.17); Alkaline Phosphatase 63 U/L (41-126); BUN/Creat Ratio 9.86 Ratio (12.00-20.00); Blood Urea Nitrogen 6.1 mg/dL (9.0-27.0); Calcium 9.3 mg/dL (8.7-10.3); Carbon Dioxide 26.6 mmol/L (20.0-27.5); Chloride 106 mmol/L (96-109); Chol/HDL Ratio 2.83 Ratio; Globulin 2.2 g/dL (1.6-3.3); Glucose 94 mg/dL (70-110); LDL Cholesterol,Calculated 62.7 mg/dL (0.0-131.0); Non-African American GFR(CKD) 118.3 (60.0-200.0); Sodium 142 mmol/L (135-145); Total Bilirubin <0.15 mg/dL (0.30-1.20); Total Protein 6.4 g/dL (6.2-8.2)
== END | disposition home or self-care (01) ==
LOC: RADMAMWWP 09:14
PROVIDERS: ATTEND Family Medicine
DX: N63.10 Unspecified lump in the right breast, unspecified quadrant (principal); E78.5 Hyperlipidemia, unspecified; R05.9 Cough, unspecified; Z80.3 Family history of malignant neoplasm of breast
CPT/HCPCS: 36415; 71046; 77062; 77066; 80053; 80061; 84443; 85025